=== PATIENT | female | born 1955 | race Caucasian/White ===

== ENCOUNTER 2020-09-03 12:30 | Outpatient (CLI) | payer OTHER, SELFPAY ==
--- NOTE | ~2020-09-03 | MR_ITS ---
EXAMINATION: MR shoulder RT wo con DATE: 09/03/2020 13:24 INDICATION: Right shoulder pain and weakness TECHNIQUE: Magnetic resonance imaging (MRI) of the right shoulder was performed without intravenous c ontrast. Sequences included axial PD-weighted FS FSE, coronal oblique PD-weighted FS FSE, coronal obl ique T2-weighted FS FSE, sagittal PD-weighted FS FSE, and sagittal T1-weighted SE. COMPARISON: None. FINDINGS: Coracoacromial arch: The acromion undersurface is curved in morphology (type II). The coracoacromial ligament is normal. M oderate acromioclavicular osteoarthritis. Rotator cuff: Supraspinatus tendinopathy with small likely full-thickness tear which measures 3 mm AP and extends 1 .3 cm medially from the superior facet footplate. The subscapularis, infraspinatus and teres minor te ndons are normal. Normal rotator cuff muscle bulk and signal. Biceps tendon, glenoid labrum and glenohumeral cartilage: Long head of the biceps tendon is normal. Glenoid labrum is normal. Glenohumeral cartilage is normal. Fluid: Small glenohumeral joint effusion which extends into the long head biceps tendon sheath and deep subs capular bursa. There is also a small amount of fluid in the subacromial/subdeltoid bursa likely exten ding through the full-thickness rotator cuff tear. No loose osteochondral bodies. Bones: Normal marrow signal with no edema, fracture or pathologic marrow replacing process. IMPRESSION: 1. Small full-thickness tear of the supraspinatus tendon. 2. Moderate glenohumeral osteoarthritis. Reviewed, dictated and finalized at location A. 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
== END 2020-09-03 12:31 | disposition home or self-care (01) ==
PROVIDERS: PCP Orthopaedic Surgery; Visit Provider Orthopaedic Surgery
DX: M25.511 Pain in right shoulder (principal); R53.1 Weakness
CPT/HCPCS: 73221

== ENCOUNTER 2024-05-31 08:49 | Outpatient (CLI) | payer MEDICARE, SELFPAY ==
--- NOTE | ~2024-05-31 | US_ITS ---
Renal-Bladder ultrasound Clinical History: Abnormal finding of blood chemistry Technique: Real-time sonographic imaging of the kidneys and urinary bladder was performed. Findings: The right kidney measures 9.1 cm in length and the left kidney measures 8.6 cm. There is no hydronephrosis or renal calculus identified. Renal cortical echogenicity is within normal limits. No renal mass lesion is identified. The urinary bladder is collapsed, limiting evaluation. Impression: Unremarkable ultrasound of the kidneys. Limited evaluation of urinary bladder. Reviewed, dictated and finalized at location M. Impression: Unremarkable ultrasound of the kidneys. Limited evaluation of urinary bladder.
== END 2024-05-31 08:50 | disposition home or self-care (01) ==
LOC: GOSHIMG 08:51
PROVIDERS: PCP Internal Medicine Nephrology; Visit Provider Internal Medicine
DX: R79.89 Other specified abnormal findings of blood chemistry (principal)
CPT/HCPCS: 76775

== ENCOUNTER 2025-05-05 11:00 | Outpatient (NON) | payer MEDICARE, SELFPAY ==
--- OUTSIDE RECORDS SUMMARY | 2007-11-26 04:03 | XMS_ITS | Continuity of Care Document ---
Author Organization [facility] Address [address] [place] [address] utive [facility] 150 [place] [address] Phone Care Team Providers Care Teller Vault Name Role Phone Luis Miguel Jay Unavailable Unavailable Procedures Procedure Date Office/outpatient Visit, Est Office/outpatient Visit, Est Office/outpatient Visit, Est Eye Exam Established Pt Office/outpatient Visit, Est Office/outpatient Visit, Est Advance Directives Directive Yes / No Effective Date File Name No Information Encounters Encounter Description Practice Location Reason(s) For Visit Diagnoses Date Provider Providers Copied on Encounter Office/outpat ient Visit, [facility], [address] [place] [address] [facility], [place], [place], [address], [place] tel:[phone] [facility] [place] No Information 4-200 8 Pierre Bolaons. [facility] , [address], [place], [facility], [place]. tel:[phone] Referring Provider: Balaji Winn, [address] [place] [address], [facility]. tel:[phone] Office/outpat ient Visit, [facility], [address] [place] [address] [address], [place], [place], [address], [place] tel:[phone] [facility] [place] No Information Oct- 8-200 8 Byron Davalos. 2421 [facility] 102, [place], [address], [place]. tel:[phone] Referring Provider: Balaji Winn, [address] [place] [address], [facility]. tel:[phone] Office/outpat ient Visit, [facility], [address] [place] [address] [address], [place], [place], [address], tel:[phone] [facility] No Information Mar-2 6-200 8 Pressley OD Robbie. [address] [place], [place] [address]ate Center , [address], [place], [facility], [place]. tel:[phone] Referring Provider: Balaji Winn, [address] [place] [address], [facility]. tel:[phone] [facility], [address] [place] [address] [address], [place], [place], [address], [place] tel:[phone] [facility] No Information Mar-2 5-200 8 Krishnasamy Anoop. [address] [place], [place] [address]ate Center [address], [place], [facility], [place]. tel:[phone] Referring Provider: Robbie Pressley OD A, [address] [place], [place] [address]ate Center [address], [place], [facility]. tel:[phone] Office/outpat ient Visit, [facility], [address] [place] [address] [address], [place], [place], [address], [place] tel:[phone] SEC [facility] No Information Mar-1 9-200 8 Pressley OD Robbie. [facility] , [address], [place], [facility], [place]. tel:[phone] Office/outpat ient Visit, [facility], [address] [place] [address] [address], [place], [place], [address], [place] tel:[phone] [facility] No Information Mar-1 2-200 8 Pressley OD Robbie. [facility] , [address], [place], [address], [place]. tel:[phone] Referring Provider: Balaji Winn, [facility] [place], [address]. tel:[phone] Family History Family Member Type Diagnosis Age [...]
--- OUTSIDE RECORDS SUMMARY | 2025-05-05 12:06 | XMS_ITS | Clinical Summary ---
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 Name Role Phone Balaji Winn MD Primary Care Provider Kai Melo MD Unavailable [phone] Allergies Active Allergy Reactions Criticality Noted Date Comments Cefprozil Rash Medium 10/26/2024 Doxycycline Other (See comments) 10/26/2024 Vibramycin Nitrofurantoin Monohyd/M-Cryst Nausea only Low 10/26/2024 Sulfa (Sulfonamide Antibiotics) Medications ALPRAZolam (XANAX) 0.25 mg tablet Take by mouth 3 (three) times a day as needed Active amLODIPine (NORVASC) 2.5 mg tablet Take 1 tablet (2.5 mg total) by mouth daily Active buPROPion XL (WELLBUTRIN XL) 150 mg 24 hr tablet Take 1 tablet (150 mg total) by mouth daily Active calcium carbonate-vitam in D3 (CALTRATE 600 + D) 1500 mg (600 mg elemental) -400 units per tablet Take 1 tablet by mouth 2 (two) times a day Active cholecalciferol (VITAMIN D-3) 2000 unit capsule Take 1 capsule (2,000 Units total) by mouth daily 9 Active citalopram (CeleXA) 20 mg tablet Take 1 tablet (20 mg total) by mouth daily Active clobetasoL (TEMOVATE) 0.05 % cream Apply 1 Application topically 2 (two) times a day as needed Active clotrimazole-be tamethasone (LOTRISONE) cream Apply 1 Application topically 2 (two) times a day as needed Active cyanocobalamin/ folic acid (vitamin Q85-xpnze acid) 1,000-[address] every day by sublingual route. 9 Active fluconazole (DIFLUCAN) 150 mg tablet Take 1 tablet (150 mg total) by mouth every 30 (thirty) days 1st of the month Active lisinopril-hydr oCHLOROthiazide (ZESTORETIC) 20-12.5 mg per tablet Take 1 tablet by mouth daily Active lansoprazole (PREVACID) 15 mg capsule Take 1 capsule (15 mg total) by mouth nightly 9 Active Daily-Jordi, with folic acid, 400 mcg tablet Take 1 tablet by mouth daily 5 Active pregabalin (LYRICA) 50 mg capsule Take 1 capsule (50 mg total) by mouth 2 (two) times a day 5 Active nystatin powder Apply 1 Application topically 2 (two) times a day as needed Active rOPINIRole (REQUIP) 1 mg tablet Take 1 tablet (1 mg total) by mouth nightly 5 Active naloxone (NARCAN) 4 mg/actuation spray,non-aeros olIndications:O ther closed displaced fracture of proximal end of left humerus with routine healing, subsequent encounter Administer 1 spray into affected nostril(s) as needed for opioid reversal or respiratory depression Call 911. Administer a single spray in one nostril. Repeat every 3 minutes as needed if no or minimal response. 1 each [address] (VOLTAREN) 75 mg EC tablet Take 1 tablet (75 mg total) by mouth nightly 5 Active RIVAROXABAN 15 MG (42)-20 MG (9) TABLETS IN A STARTER PACK Take 15 mg (1 tablet) TWICE a day for 21 days, then take 20 mg (1 tablet) once a day thereafter. 51 tablet 5 Active acetaminophen-c odeine (TYLENOL with CODEINE #4) 300-60 mg per tablet TK 1 T PO Q 6 H Act magnus amitriptyline (ELAVIL) 25 mg tablet Active amoxicillin 500 mg tablet/capsule Take 1 capsule 3 times a day by oral route for 10 days. Active azithromycin (ZITHROMAX) 250 mg tablet TAKE 2 TABLETS (500 MG) BY ORAL ROUTE ONCE DAILY FOR 1 DAY THEN 1 TABLET (250 MG) BY ORAL ROUTE ONCE DAILY FOR 4 DAYS 5 Active ciprofloxacin (CIPRO) 500 mg tablet Take 1 tablet every 12 hours by oral route. Active clindamycin (CLEOCIN) 300 mg capsule Take 1 capsule (300 mg total) by mouth every 6 (six) hours 5 Active desloratadine (Clarinex) 5 mg tablet Take 1 tablet every day by oral route. 5 Active doxycycline 100 mg tablet Active furosemide (LASIX) 20 mg tablet Take 1 tablet (20 mg total) by mouth daily Active HYDROcodone-emily taminophen (NORCO) 5-325 mg per tablet Take by mouth every 6 (six) hours as needed Active neomycin-polymy cathy B-dexAMETHasone (MAXITROL) 3.5 mg/g-10,000 unit/g-0.1 % ointment Active oxyCODONE-aceta minophen (PERCOCET) 5-325 mg per tablet Take 1 tablet by mouth every 4 (four) hours as needed for pain Active progesterone (PROMETRIUM) 200 mg capsule Activ e triamcinolone (KENALOG) 0.1 % paste Active tobramycin-dexA METHasone (TOBRADEX) ophthalmic solution INSTILL 1 DROP IN THE LEFT EYE 4 TIMES DAILY FOR 7 DAYS Active triazolam (HALCION) 0.25 mg tablet Active valACYclovir (VALTREX) 1 gram tablet Active Active Problems Problem Noted Date Diagnosed Date Other pulmonary embolism wit hout acute cor pulmonale, unspecified chronicity 02/01/2025 Chest pain 11/28/2024 Depressive disorder 11/28/2024 Enthesopathy of hip region 11/28/2024 Essential hypertension 11/28/2024 Low back pain 11/28/2024 Migraine 11/28/2024 Obstructive sleep apnea syndrome 11/28/2024 Osteoarthritis of knee 11/28/2024 Restless legs 11/28/2024 Shoulder joint pain 11/28/2024 Skin lesion 11/28/2024 Synovitis and tenosynovitis 11/28/2024 Closed fracture of proximal end of left humerus with routine healing 11/28/2024 Onychomycosis of toenail 09/25/2024 Plantar fasciitis of right foot 09/25/2024 Cellulitis of upper arm 06/02/2024 High serum creatinine 05/26/2024 Chronic renal failure 05/18/2024 COVID-19 04/12/2024 Pain in right foot 04/05/2024 Edema 03/07/2024 Low back strain 12/01/2023 Acute bronchitis 07/22/2023 Gastroesophageal reflux disease without esophagi tis 06/23/2023 Cough 05/18/2023 Hyperglycemia 02/18/2023 Arthritis 12/15/2022 Dystrophia unguium 12/15/2022 Headache 12/15/2022 Sleep disorder 12/15/2022 Arthralgia of left knee 09/24/2022 Hidradenitis suppurativa 09/02/2022 Tinea corporis 09/02/2022 Acute urinary tract infection 08/11/2022 Morbid obesity 08/11/2022 Vitamin D2 deficiency 02/11/2022 Acute conjunctivitis 01/13/2022 Polyneuropathy 12/17/2017 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 Constipation 06/30/2016 Obesity with body mass index 30 or greater 06/26 Encounters Date Type Department Care Team Description 04/13/2025 9:05 PM CDT - 04/13/2025 11:59 PM CDT Hospital Encounter [facility] [address] [place] [phone] Obstructive sleep apnea Discharge Disposition: Discharge to home or self care 04/10/2025 1:12 PM CDT - 04/10/2025 11:59 PM CDT Hospital Encounter [facility] ` [address] [place] [phone] Abnormal mammogram of right breast Discharge Disposition: Discharge to home or self care 03/22/2025 11:00 AM CDT Office Visit [facility] at [address] [place] [phone] Pinky Trevino PA Other closed displaced fracture of proximal end of left humerus with routine healing, subsequent encounter (Primary Dx) 03/22/2025 10:34 AM CDT - 03/22/2025 11:59 PM CDT Hospital Encounter [facility] [address] [place] [phone] Discharge Disposition: Discharge to home or self care 03/21/2025 10:16 AM CDT - 03/21/2025 11:59 PM CDT Hospital Encounter [facility] [address] [place] [address] Personal history of pulmonary embolism Discharge Disposition: Discharge to home or self care 03/16/2025 12:06 PM CDT - 03/16/2025 11:59 PM CDT Hospital Encounter [facility] [address] [place] [phone] Screening mammogram, encounter for Discharge Disposition: Discharge to home or self care 03/16/2025 12:04 PM CDT - 03/16/2025 11:59 PM CDT Hospital Encounter [facility] [address] [place] [phone] Age-related osteoporosis without current pathological fracture Discharge Disposition: Discharge to home or self care 02/01/2025 11:33 AM CDT - 02/03/2025 4:55 PM CDT Hospital Encounter [facility] [id number] [place] [id number] Marzena Holly MD Ogunremi, MD Prateek Hayes, Vaibhav Reyes, DO Other pulmonary embolism without acute cor pulmonale, unspecified chronicity (HCC) (Primary Dx) Discharge Disposition: Discharge to home or self care from Last 3 Months Medical History Medical History Date Comments Hypertension Arthritis Depression Family History Medical History Relation Name Comments Pancreatic cancer Neg Hx Prostate cancer Neg Hx Social History Tobacco Use Types Packs/Day Years Used Date Smoking Tobacco: Never Alcohol Use Standard Drinks/Week Comments Not Currently 0 (1 standard drink = 0.6 oz pur e alcohol) C Utilities Answer Date Recorded In the past 12 months has [employer], gas, oil, or water [employer] threatened to shut off services in your home? No 02/02/2025 Social Connection and Isolation Panel Answer Date Recorded In a typical week, how many times do you talk on the phone with family, friends, or neighbors? More than three times a week 02/02/2025 How often do you get togethe r with friends or relatives? More than three times a week 02/02/2025 How often do you attend chur ch or quaker services? Patient declined 02/02/2025 Do you belong to any clubs o r organizations such as protestant groups, unions, fraternal or athletic groups, or school groups? Patient declined 02/02/2025 How often do you attend meet ings of the clubs or organizations you belong to? Patient declined 02/02/2025 Are you , , di vorced, , never , or living with a partner? 02/02/2025 AUDIT-C Answer Date Recorded Q1: How often do you have a drink containing alc ohol? Never 01/18/2025 Average Number of Drinks Not on file 025 Frequency of Binge Drinking Not on file 12/23 Overall Financial Resource Strain (CARDIA) Answe r Date Recorded How hard is it for you to pa y for the very basics like food, housing, medical care, and heating? Not very hard 02/02/2025 Hunger Vital Sign Answer Date Recorded Within the past 12 months, y ou worried that your food would run out before you got the money to buy more. Never true 02/03/20 25 Within the past 12 months, t he food you bought just didn't last and you didn't have money to get more. Never true 02/02/2025 PRAPARE - Transportation Answer Date Re corded In the past 12 months, has l ack of transportation kept you from medical appointments or from getting medications? No 01/22 In the past 12 months, has l ack of transportation kept you from meetings, work, or from getting things needed for daily living? No 02/02/2025 Housing Stability Vital Sign Answer Constantine e Recorded In the last 12 months, was t here a time when you were not able to pay the mortgage or rent on time? No 02/02/2025 In the past 12 months, how m any times have you moved where you were living? 0 02/02/2025 At any time in the past 12 [facility], were you homeless or living in a senior care (including now)? No 02/02/2025 Personal Safety Answer Date Recorded Have you ever been in or are you currently in a harmful physical or emotional relationship or is someone making you feel afraid or unsafe? 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 Gender Identity Not on file Sexual Orientation Not on file Obstetrics History Para Term AB IAB SAB Ectopic Multiple Livin g Live Births 3 2 Date Outcome GA Total Labor Labor/2nd/3rd Weight Sex Type Anes PTL Bernice A1 A5 Name Clin Last Filed Vital Signs Vital Sign Reading Time Taken Comments Blood Pressure 117/84 02/03/2025 3:32 PM CDT Pulse 83 02/03/2025 3:32 PM CDT Temperature 36.3 C (97.3 F) 02/03/2025 3:32 PM CDT Respiratory Rate 18 02/03/2025 7:33 AM CDT Oxygen Saturation 91% 02/03/2025 7:33 AM CDT Inhaled Oxygen Concentration - - Weight 100.7 kg (222 lb) 03/22/2025 10:21 AM CDT Height 149.9 cm (4' 11) 03/22/2025 10:21 AM CDT Body Mass Index 44.84 03/22/2025 10:21 AM CDT Plan of Treatment Health Maintenance Due Date Last Done Comments Colon Cancer Screening-Colonoscopy 1955 Depression Screening 1955 DTaP/Tdap/Td Vaccine (1 - Tdap) 1967 Hepatitis B Screening 1974 Well Visit 65+ 2021 Covid-19 Vaccine (5 - 2024-2 6 season) 2025 07/09/2022, 07/24/2021, 11/17/2020, Additional history exists Influenza Vaccine (#1) 2025 , 06/04/2020, 07/07/2019, Additional history exists Fall Risk Assessment 02/03/2026 02/03/2025 Breast Cancer Screening-Mammogram 03/16/2026 025 Osteoporosis Screening-Bone Density Scan 03/16/2027 03/16/2025 Zoster Vaccine Completed 10/27/2022, 07/10/2022 Pneumococcal vaccine 65+ Completed 08/14/2023, 06/25 Hepatitis C Screening Completed 09/19/2024 Procedures Procedure Name Priority Date/Time Associated Diagnosis Comments PSG (SIMPLE) Routine 04/13/2025 12:00 AM CDT Obstructive sleep apnea US BREAST RIGHT LIMITED Schedule Routine, Read Routine (OP Routine) 04/10/2025 2:47 PM CDT Abnormal mammogram of right breast XR SHOULDER LEFT 2 OR MORE VIEWS Schedule Routine, Read Routine (OP Routine) 03/22/2025 1:07 PM CDT Other closed displaced fracture of proximal end of left humerus with routine healing, subsequent encounter US VEIN DUPLEX LOWER EXTREMITY BILATERAL COMPLETE Schedule Routine, Read Routine (OP Routine) 03/21/2025 11:09 AM CDT Personal history of pulmonary embolism SCREENING MAMMOGRAM BILATERAL W VIET Schedule Routine, Read Routine (OP Routine) 03/16/2025 12:40 PM CDT Screening mammogram, encounter for DEXA AXIAL SKELETON BONE DENSITY 1 OR MORE SITES Schedule Routine, Read Routine (OP Routine) 03/16/2025 12:34 PM CDT Age-related osteoporosis without current pathological fracture HOME O2 EVAL (DESATURATION SCREEN) Routine 02/03/2025 9:50 AM CDT US VEIN DUPLEX LOWER EXTREMITY BILATERAL COMPLETE IP Routine 02/03/2025 8:04 AM CDT EGFR Routine 02/03/2025 3:58 AM CDT CBC WITHOUT DIFFERENTIAL Routine 02/03/2025 3:58 AM CDT BASIC METABOLIC PANEL Routine 02/03/2025 3:58 AM CDT EGFR Routine 02/02/2025 6:30 AM CDT BASIC METABOLIC PANEL Routine 02/02/2025 6:30 AM CDT HEPATITIS C ANTIBODY Routine 09/19/2024 11:29 AM ORAL AND MAXILLOFACIAL PATHOLOGIST from Last 3 Months or Most Recently Relevant to Health Maintenance Results * PSG (04/13/2025 12:00 AM CDT) Narrative Procedure Note Basil Souza MD - 04/13/2025 12:00 AM CDT PATIENT: Debbie Brumfield STUDY DATE: 04/13/2025 REFERRING PHYSICIAN: Lorie INDICATIONS FOR POLYSOMNOGRAPHY: The patient is a 70 year year old Femalewho is 4' 11 and weighs 220.0 lbs. Her BMI equals 44.9. A full nightpolysomnogram was performed to evaluate for sleep apnea. POLYSOMNOGRAM DATA: A full night polysomnogram recorded the standardphysiologic parameters including EEG, EOG, EMG, EKG, nasal and oralairflow. Respiratory parameters of chest and abdominal movements wererecorded with Peizo-Crystal motion transducers. Oxygen saturation wasrecorded by pulse oximetry. Patient was monitored through video for theduration of the night. All data was visually scored and analyzed bystandard criteria and scored by an RPSGT. Every epoch was evaluated bythis interpreting physician. SLEEP ARCHITECTURE: The total recording time of the polysomnogram bmq528.6 minutes. The total sleep time was 282.5 minutes. The patient spent30.1% of total sleep time in Stage N1, 63.5% in Stage N2, 0.0% in StagesN3 and N, and 6.4% in REM. Sleep latency was 40.8 minutes. REM latency vti956.5 minutes. Sleep Efficiency was 66.1%. Sleep Maintenance Efficiencywas 73.2%. Total wake time was 145.5 minutes for a total wake percentageof 26.7%. RESPIRATORY EVENTS: The polysomnogram revealed a presence of 1obstructive, - central, and 4 mixed apneas resulting in an Apnea index of1.1 events per hour. There were 21 hypopneas resulting in a Hypopnea indexof 4.5 events per hour. The combined Apnea/Hypopnea index was 5.5 eventsper hour. Baseline oxygen saturation was 90.3%. The lowest oxygen saturation was79.0%. Time spent with SpO2 <88% was 59 min. LIMB ACTIVITY: There were 95 limb movements recorded. Of this total, 26were classified as PLMs. Of the PLMs, 2 were associated with arousals. TheLimb Movement index was 20.2 per hour while the PLM index was 5.5 per hourwith an arousal index of 0.4. CARDIAC SUMMARY: The average pulse rate was 80.4 bpm. The minimum pulserate was 70.0 bpm while the maximum pulse rate was 225.0 bpm. Underlyingcardiac rhythm during the night was normal sinus rhythm. CONCLUSION Mild obstructive sleep apnea. Prolonged sleep latency. Prolonged REM onset. Poor sleep stage progression. Nocturnal hypoxemia. DIAGNOSIS - Mild obstructive sleep apnea. RECOMMENDATIONS: If the patient has a history of excessive daytime sleepiness or carries ahistory of hypertension, other cardiovascular disorders, or impairedcognition, a full night CPAP titration study is recommended. Anotheroption includes a trial of auto-CPAP (APAP) if the patient is not onopioids and does not have congestive heart failure, obesityhypoventilation syndrome, or moderate to severe COPD. If going to use APAPtherapy then would do APAP 5-15 cmH2O and then obtain a nocturnaldesaturation study 4-6 weeks after starting PAP therapy to see ifnocturnal hypoxemia has resolved. If the patient is CPAP intolerant or interested in an alternative option,consider the use of a customized oral appliance. This may include referralto a dental specialist who is trained in dental sleep medicine. Positional therapy is also a possible treatment option. Avoid alcohol, sedatives and other ENVIRONMENTAL WEB CRAWLER depressants that may worsen sleepapnea and disrupt normal sleep architecture. Sleep hygiene should be reviewed to assess factors that may improve sleepquality. Safe driving precautions must be discussed with the patient. Weight management and regular exercise should be initiated or continued. Clinical correlation is suggested. Job ID/Internal Job ID: [id number] us Kai Melo MD SLEEP [facility]ENTER ORDERABLES Final Result * US Breast Right Limited (04/10/2025 2:47 PM CDT) Anatomical Region Laterality Modality Breast Right Ultrasound 04/10/2025 2:52 PM CDT Impressions 04/10/2025 2:52 PM CDT Right breast cyst correlates with the mammographic finding. OVERALL FINAL ASSESSMENT: BI-RADS Category 2: Benign. RECOMMENDATION: Annual screening mammography is recommended. Electronically signed by: Yariel Devries M.D. Narrative 04/10/2025 2:52 PM CDT EXAMINATION: RIGHT BREAST ULTRASOUND HISTORY: Follow-up right breast mass. COMPARISON: Screening mammogram of 03/16/2025 TECHNIQUE: Directed ultrasound evaluation of the RIGHT breast was performed. ULTRASOUND FINDINGS: In the right breast, at the 5 o'clock position 5 cm from the nipple, there is a 6 mm cyst. This correlates with the mammographic finding. There is no suspicious sonographic abnormality. us Balaji Winn MD IMG MAMMO PROCEDURES F inal Result * XR Shoulder Left 4 Views (03/22/2025 1:07 PM CDT) Anatomical Region Laterality Modality Upper Extremities, Shoulder Left Comp uted Radiography Narrative 03/22/2025 5:41 PM CDT My interpretation of her x-rays today: Four views of her left shoulder including AP, Grashey, scapular Y, and axillary show that the fracture remains in acceptable position. There has been no change the alignment of the fracture fragments. She has further callus formation and early remodeling seen. us Pinky VAIL IMG XR PROCEDURES Final Resu lt * US Vein Duplex Lower Extremity Bilateral Complete (03/21/2025 11:09 AM CDT) Anatomical Region Laterality Modality Vascular Bilateral Ultrasound 03/21/2025 12:5 8 PM CDT Impressions 03/21/2025 12:58 PM CDT There is no evidence of acute DVT in the right and the left lower extremities. Electronically signed by: Mary Galaviz M.D. Narrative 03/21/2025 12:58 PM CDT EXAMINATION: US VEIN DUPLEX LOWER EXTREMITY BILATERAL COMPLETE HISTORY: The patient is a 69-year-old female who presents with the history of pulmonary embolism. Comparison is made with the previous study dated 02/03/2025. TECHNIQUE: Bilateral lower extremity venous duplex study was performed with alexander scale imaging, color Doppler imaging and spectral waveform analysis. FINDINGS: There is normal compressibility and phasicity in the right and the left common femoral, deep femoral, femoral, popliteal, posterior tibial and peroneal veins as well as both saphenofemoral junctions. Imaging of these veins reveals no thrombus or reflux. Procedure Note Mary Galaviz MD - 03/21/2025 EXAMINATION: US VEIN DUPLEX LOWER EXTREMITY BILATERAL COMPLETE HISTORY: The patient is a 69-year-old female who presents with the history of pulmonary embolism. Comparison is made with the previous study dated 02/03/2025. TECHNIQUE: Bilateral lower extremity venous duplex study was performed with alexander scale imaging, color Doppler imaging and spectral waveform analysis. FINDINGS: There is normal compressibility and phasicity in the right and the left common femoral, deep femoral, femoral, popliteal, posterior tibial and peroneal veins as well as both saphenofemoral junctions. Imaging of these veins reveals no thrombus or reflux. IMPRESSION: There is no evidence of acute DVT in the right and the left lower extremities. Electronically signed by: Mary Galaviz M.D. us Balaji Winn MD IMG US PROCEDURES Xuan l Result * (ABNORMAL) Screening Mammogram Bilateral W Viet (03/16/2025 12:40 PM CDT) Anatomical Region Laterality Modality Breast Bilateral Mammography Impressions 03/21/2025 8:50 AM CDT Right 1) Mass: Right breast 0.5 cm mass in the lower inner quadrant at 5 o'clock. Assessment: 0 - Incomplete. Ultrasound is recommended. Left No evidence of malignancy. OVERALL BI-RADS FINAL ASSESSMENT: 0 - Incomplete: Needs Additional Imaging Evaluation RECOMMENDATIONS: Recommend right breast ultrasound. Narrative 03/21/2025 8:50 AM CDT EXAMINATION: Screening Mammogram Bilateral W Viet: 03/16/2025 COMPARISON: Relevant prior studies available at the time of interpretation were reviewed, including the most recent mammogram on: 01/04/2024. TECHNIQUE: Mammography was performed with 2D and digital breast tomosynthesis (DBT) images. CAD was utilized. BREAST PARENCHYMAL COMPOSITION: There are scattered areas of fibroglandular density. FINDINGS: Right 1) Mass: There is a 0.5 cm equal density, oval mass with circumscribed margins seen in the lower inner quadrant of the right breast at 5 o'clock. This finding needs additional imaging evaluation. Left There is no suspicious mass, calcification, or architectural distortion. us Self Screening Mammogram IMG MAMMO PROCEDURES Fi nal Result * Dexa Axial Skeleton Bone Density 1 or 2 Site (03/16/2025 12:34 PM CDT) Anatomical Region Laterality Modality Body N/A Other 03/16/2025 2:54 PM CDT Impressions 03/16/2025 2:54 PM CDT Normal bone mineral density of lumbar spine at L1-L4 Osteopenia of the, total left hip and left femoral neck. Major osteoporotic 10 year fracture risk is 14% Electronically signed by: Sebastian Chua M.D. Narrative 03/16/2025 2:54 PM CDT Examination: DEXA AXIAL SKELETON BONE DENSITY 1 OR MORE SITES Date: 03/16/2025 1:00 PM History: Osteoporosis screening. Comparison: None. Findings: The bone densitometry of the L1-L4 region, the left femoral neck and the total left hip was calculated using dual-energy x-ray absorptiometry. Summary: Bone mineral density (BMD) of the lumbar spine (L1-4): T-score is -0.2; 97% of normal Bone mineral density (BMD) of the total left hip: T-score is 0.5; 93% of normal Bone mineral density (BMD) of the left femoral neck: T-score is -1.6; 79% of normal Procedure Note Sebastian Chua MD - 03/16/2025 Examination: DEXA AXIAL SKELETON BONE DENSITY 1 OR MORE SITES Date: 03/16/2025 1:00 PM History: Osteoporosis screening. Comparison: None. Findings: The bone densitometry of the L1-L4 region, the left femoral neck and the total left hip was calculated using dual-energy x-ray absorptiometry. Summary: Bone mineral density (BMD) of the lumbar spine (L1-4): T-score is -0.2; 97% of normal Bone mineral density (BMD) of the total left hip: T-score is 0.5; 93% of normal Bone mineral density (BMD) of the left femoral neck: T-score is -1.6; 79% of normal IMPRESSION: Normal bone mineral density of lumbar spine at L1-L4 Osteopenia of the, total left hip and left femoral neck. Major osteoporotic 10 year fracture risk is 14% Electronically signed by: Sebastian Chua M.D. Balaji Winn MD IMG DXA PROCEDURES Fin al Result * US Vein Duplex Lower Extremity Bilateral Complete (02/03/2025 8:04 AM CDT) Anatomical Region Laterality Modality Vascular Bilateral Ultrasound 02/03/2025 8:17 AM CDT Impressions 02/03/2025 8:17 AM CDT 1. Occlusion of the downstream portion of the left superficial femoral vein with nonvisualization of the common femoral and profunda suggesting deep vein thrombosis of uncertain chronicity. 2. No right lower extremity deep vein thrombosis seen. Electronically signed by: Ramírez Keating M.D. Narrative 02/03/2025 8:17 AM CDT EXAMINATION: BILATERAL LOWER EXTREMITY VENOUS DOPPLER HISTORY: Pulmonary embolus COMPARISON: None TECHNIQUE: Ultrasound examination was performed from the groin to the ankle using alexander scale, duplex color flow, and spectral analysis. The proximal saphenous, common femoral, superficial femoral, popliteal, posterior tibial and peroneal veins were evaluated. Both augmentation and compression maneuvers were performed. FINDINGS: The veins of the right lower extremity are normally compressible with normal augmentation. On the left the common femoral vein and the profunda are not visualized. The downstream portion of the superficial femoral vein is occluded. Upstream there is normal flow and augmentation. The popliteal vein to the calf veins are normal. The left greater saphenous vein is not visualized. Procedure Note Ramírez Keating MD - 02/03/2025 EXAMINATION: BILATERAL LOWER EXTREMITY VENOUS DOPPLER HISTORY: Pulmonary embolus COMPARISON: None TECHNIQUE: Ultrasound examination was performed from the groin to the ankle using alexander scale, duplex color flow, and spectral analysis. The proximal saphenous, common femoral, superficial femoral, popliteal, posterior tibial and peroneal veins were evaluated. Both augmentation and compression maneuvers were performed. FINDINGS: The veins of the right lower extremity are normally compressible with normal augmentation. On the left the common femoral vein and the profunda are not visualized. The downstream portion of the superficial femoral vein is occluded. Upstream there is normal flow and augmentation. The popliteal vein to the calf veins are normal. The left greater saphenous vein is not visualized. IMPRESSION: 1. Occlusion of the downstream portion of the left superficial femoral vein with nonvisualization of the common femoral and profunda suggesting deep vein thrombosis of uncertain chronicity. 2. No right lower extremity deep vein thrombosis seen. Electronically signed by: Ramírez Keating M.D. Renée George MD IMG US PROCEDURES Final Resul t * eGFR (02/03/2025 3:58 AM CDT) eGFR 66 >=60 mL/min/1. 73 m2 Comment: Interpretive Data Reference Interval Normal >/= 90 mL/min/1.73m2 Mildly decreased* 60 - 89 mL/min/1.73m2 Mildly to moderately decreased 45 - 59 mL/min/1.73m2 Moderately to severely decreased 30 - 44 mL/min/1.73m2 Severely decreased 15 - 29 mL/min/1.73m2 Kidney Failure < 15 mL/min/1.73m2 *Relative to young adult level Estimated glomerular filtration rate is determined by the 2020 CKD-EPI equation recommended by the National Kidney Foundation (A Unifying Approach to GFR Estimation: Recommendations of the NKF-ASK Task Force on Reassessing the Inclusion of Race in Diagnosing Kidney Disease, JASN 202). The CKD-EPI equation should not be used for patients with unstable renal function and has not been validated in children and those over 70. Current interpretive data was last reviewed 2021. Blood 02/03/2025 3:58 AM CDT 02/03/2025 4:30 AM CDT Renée George MD LAB BLOOD ORDERABLES Final Re sult [facility] [address] Department [place] [address] * (ABNORMAL) CBC without differential (02/03/2025 3:58 AM CDT) WBC 10.20(H) 3.80 - 9.90 K/cumm Hgb 11.6(L) 11.9 - 15.5 g/dL [facility] CH Hct 37.6 35.6 - 45.5 % [facility] CH Plt 197 150 - 400 K/cumm [facility] CH MPV 10.9 9.1 - 12.3 fL [facility] RBC 4.19 3.90 - 5.20 M/cumm [facility] CH MCV 89.7 81.3 - 96.4 fL [facility] CH MCH 27.7 27.1 - 33.3 pg [facility] MCHC 30.9(L) 32.3 - 35.7 g/dL [facility] CH RDW CV 15.9(H) 11.1 - 14.9 % [facility] CH RDW SD 52.1(H) 35.7 - 48.1 fL [facility] NRBC abs 0.00 0.00 - 0.01 K/cumm [facility] Blood 02/03/2025 3:58 AM CDT 02/03/2025 4:30 AM CDT Narrative [facility] - 02/03/2025 4:38 AM CDT While on enoxaparin Vaibhav Chandra DO LAB BLOOD ORDERABLES Xuan l Result [facility] [address] Department [place] [address] * Basic metabolic panel (02/03/2025 3:58 AM CDT) Sodium 141 135 - 145 mmol/L Potassium, pl 3.6 3.3 - 4.9 mmol/L [facility] Chloride 104 97 - 110 mmol/L [facility] CO2 26 22 - 32 mmol/L [facility] Anion gap 11 2 - 15 mmol/L [facility] BUN 20 6 - 25 mg/dL [facility] Creatinine 0.94 0.60 - 1.10 mg/dL [facility] Glucose 105 70 - 199 mg/dL [facility] Comment: Interpretive Data Fasting glucose >/= 126 mg/dl is diagnostic for diabetes. Fasting is defined as no caloric intake for at least 8 hours. Fasting glucose between 100 mg/dl to 125 mg/dl is diagnostic of prediabetes. In a patient with classic symptoms of hyperglycemia or hyperglycemic crisis, a random glucose >/= 200 mg/dl is diagnostic for diabetes. In the absence of unequivocal hyperglycemia, results should be confirmed by repeat testing. The classification and Diagnosis of Diabetes Diabetes Care 2021; 46: S19-S40. Current interpretive data was last revised 2022. Calcium 9.2 8.5 - 10.3 mg/dL [facility] Blood 02/03/2025 3:58 AM CDT 02/03/2025 4:30 AM CDT us Renée George MD LAB BLOOD ORDERABLES Final Re sult [facility] [address] Department [place] [address] * eGFR (02/02/2025 6:30 AM CDT) eGFR 68 >=60 mL/min/1. 73 m2 Comment: Interpretive Data Reference Interval Normal >/= 90 mL/min/1.73m2 Mildly decreased* 60 - 89 mL/min/1.73m2 Mildly to moderately decreased 45 - 59 mL/min/1.73m2 Moderately to severely decreased 30 - 44 mL/min/1.73m2 Severely decreased 15 - 29 mL/min/1.73m2 Kidney Failure < 15 mL/min/1.73m2 *Relative to young adult level Estimated glomerular filtration rate is determined by the 2020 CKD-EPI equation recommended by the National Kidney Foundation (A Unifying Approach to GFR Estimation: Recommendations of the NKF-ASK Task Force on Reassessing the Inclusion of Race in Diagnosing Kidney Disease, JASN 2020). The CKD-EPI equation should not be used for patients with unstable renal function and has not been validated in children and those over 70. Current interpretive data was last reviewed 2021. Blood 02/02/2025 6:30 AM CDT 02/02/2025 6:49 AM CDT Víctor Weiss MD LAB BLOOD ORDERABLES Final Result [facility] [address] Department [place] [address] * Basic metabolic panel (02/02/2025 6:30 AM CDT) Sodium 139 135 - 145 mmol/L Potassium, pl 3.9 3.3 - 4.9 mmol/L [facility] Chloride 102 97 - 110 mmol/L [facility] CO2 23 22 - 32 mmol/L [facility] Anion gap 14 2 - 15 mmol/L [facility] BUN 20 6 - 25 mg/dL [facility] Creatinine 0.92 0.60 - 1.10 mg/dL [facility] Glucose 109 70 - 199 mg/dL [facility] Comment: Interpretive Data Fasting glucose >/= 126 mg/dl is diagnostic for diabetes. Fasting is defined as no caloric intake for at least 8 hours. Fasting glucose between 100 mg/dl to 125 mg/dl is diagnostic of prediabetes. In a patient with classic symptoms of hyperglycemia or hyperglycemic crisis, a random glucose >/= 200 mg/dl is diagnostic for diabetes. In the absence of unequivocal hyperglycemia, results should be confirmed by repeat testing. The classification and Diagnosis of Diabetes Diabetes Care 202; 46: S19-S40. Current interpretive data was last revised 2022. Calcium 9.5 8.5 - 10.3 mg/dL [facility] Blood 02/02/2025 6:30 AM CDT 02/02/2025 6:44 AM CDT us Víctor Weiss MD LAB BLOOD ORDERABLES Final Result [facility] [address] Department [place] [address] * Hepatitis C antibody Blood (09/19/2024 11:29 AM ORAL AND MAXILLOFACIAL PATHOLOGIST) Hep C Ab Nonreactive Nonreactive Comment: Interpretive Data Nonreactive: Antibodies to HCV not detected. Does NOT exclude the possibility of recent exposure to HCV. Equivocal: Equivocal for HCV antibodies. Supplemental molecular testing will be automatically performed to determine infection status in accordance with current CDC screening recommendations. Reactive: Positive for HCV antibodies. This may represent current or past HCV infection. Supplemental molecular testing will be automatically performed to determine current infection status in accordance with current CDC screening recommendations. Interpretive data was last revised on 2019. Blood 09/19/2024 11:2 9 AM ORAL AND MAXILLOFACIAL PATHOLOGIST 09/19/2024 6:33 PM ORAL AND MAXILLOFACIAL PATHOLOGIST Walter Acosta DO LAB MICROBIOLOGY - GENERAL ORDERABLES Final Result [facility] [address] Department [place] [address] from Last 3 Months or Most Recently Relevant to Health Maintenance Insurance [employer] Advance Directives For more information, please contact: [phone] * Full Code (Latest Code Status on File) Date Activated Date Inactivated Comments 02/01/2025 6:25 PM 02/03/2025 9:00 PM Care Teams Liquor Bridge Operator Helper Relationship Specialty Start Date End Date Balaji Winn MD PCP - General Internal Medicine 10/24/24 [place] [id number] [address] Consulting Physician Pulmonary Disease 02/03/25
--- OUTSIDE RECORDS SUMMARY | 2025-05-05 12:07 | XMS_ITS | Clinical Summary ---
Author Organization [facility] Facility Address [address] [address] Care Team Providers Care Principal Technical Architect Name Role Phone Balaji Winn MD Primary Care Provider [phone] Encounters Date Type Department Care Team Description 02/07/2025 Office Communication [facility] [employer] [facility], [address] [phone] Walter Acosta DO from Last 3 Months Social History Tobacco Use Types Packs/Day Years Used Date Smoking Tobacco: Never Assessed Comments Unknown Sex and Gender Information Value Date Recorded Sex Assigned at Not on file Legal Sex Female 12:47 PM EDT Gender Identity Not on file Sexual Orientation Not on file Last Filed Vital Signs Vital Sign Reading Time Taken Comments Blood Pressure 122/70 01/31/2025 1:10 PM CDT Pulse 68 01/31/2025 1:10 PM CDT Temperature 36.7 C (98 F) 09/27/2024 4:25 PM REFRIGERATING ENGINEER Respiratory Rate 20 01/31/2025 1:10 PM CDT Oxygen Saturation 91% 01/31/2025 1:10 PM CDT Inhaled Oxygen Concentration - - Weight 98.9 kg (218 lb) 01/31/2025 1:10 PM CDT Height 149.9 cm (4' 11) 01/31/2025 1:10 PM CDT Body Mass Index 44.03 01/31/2025 1:10 PM CDT Plan of Treatment Upcoming Encounters Date Type Department Care Team (Late st Contact Info) Description 08/08/2025 1:15 PM REFRIGERATING ENGINEER Office Visit [facility] [facility], [facility] [address] [facility] [address] [place] [phone] Walter Acosta DO [address] [facility] [address] [place] [address] [phone] Health Maintenance Due Date Last Done Comments Breast Cancer Screening 1955 Colorectal Cancer Screening: Annual FOBT 2005 Colorectal Cancer Screening: Colonoscopy 2005 Colorectal Cancer Screening: Sigmoidoscopy 2005 Diabetes: Hemoglobin A1C 01/20/2025 Diabetes: Ophthalmology Exam 01/20/2025 Diabetes: Pedal Pulse Checked 01/20/2025 Diabetes: Sensory Foot Exam 01/20/2025 Diabetes: Visual Foot Exam 01/20/2025 Influenza Vaccine (#1) 2025 , 06/04/2020, 07/07/2019, Additional history exists Pneumococcal Vaccine: 50+ Years Completed 08/14/2023, 07/16/2022 Hepatitis B Vaccine Aged Out No longe r eligible based on patient's age to complete this topic Insurance Medicare Advance Directives Documents on File Type Date Recorded Patient Security Compliance Specialist Expl anation Advance Care Planning 09/27/2024 11:40 AM Care Teams Principal Technical Architect Relationship Specialty Start Date End Date Balaji Winn MD [address] [facility] [address] [place] [id number] PCP - General Internal Medicine 05/27/24
== END 2025-05-05 11:01 | disposition home or self-care (01) ==
PROVIDERS: PCP Internal Medicine Nephrology; Visit Provider Otolaryngology
DX: J32.9 Chronic sinusitis, unspecified (principal)
CPT/HCPCS: 87070; 87075; 87077; 87186; 87205

== ENCOUNTER 2025-05-31 15:24 | Outpatient (NON) | payer MEDICARE, SELFPAY | END 2025-05-31 15:25 | disposition home or self-care (01) | LOC: ANHGOSHLAB 15:25 | PROVIDERS: PCP Internal Medicine Nephrology; Visit Provider Otolaryngology | DX: J01.90 Acute sinusitis, unspecified (principal); T78.40XA Allergy, unspecified, initial encounter | CPT/HCPCS: 87070; 87075; 87205 ==

== ENCOUNTER 2025-06-01 14:49 | Outpatient (CLI) | payer MEDICARE, SELFPAY ==
--- NOTE | ~2025-06-01 | CT_ITS ---
EXAMINATION: CT sinus wo con DATE: 06/01/2025 15:13 INDICATION: Chronic sinusitis TECHNIQUE: Computed tomography (CT) of the paranasal sinuses was performed without intravenous contrast. Coronal reconstructions were obtained. Iterative reconstruction technique was employed. The dose-length product was 301.30 mGy-cm. COMPARISON: None FINDINGS: Nearly complete filling of the left maxillary sinus and many of the left ethmoid air cells. There is occlusion of the left ostiomeatal unit and the left frontoethmoidal recess. Remainder of the paranasal sinuses are clear. Sclerotic wall thickening of the right sphenoid sinus suggesting sequela of prior chronic sinusitis. There is slight leftward bowing of the nasal septum which parallels the contours of the turbinates with left-sided nipple spike. There is also asymmetric mucosal thickening in the left nasal sinus. Bilateral orbits are normal. Mastoid air cells and middle ear cavities are clear. IMPRESSION: 1. Prominent left-sided sinus disease with near complete opacification of the left maxillary sinus and multiple left ethmoid air cells an including occlusion of the left frontoethmoidal recess and ostiomeatal unit. Reviewed, dictated and finalized at location A. IMPRESSION: 1. Prominent left-sided sinus disease with near complete opacification of the l eft maxillary sinus and multiple left ethmoid air cells an including occlusion of the left frontoethmoidal recess and ostiomeatal unit.
== END 2025-06-01 14:50 | disposition home or self-care (01) ==
PROVIDERS: PCP Internal Medicine; Visit Provider Otolaryngology
DX: J32.9 Chronic sinusitis, unspecified (principal); J01.90 Acute sinusitis, unspecified; J34.2 Deviated nasal septum; J34.3 Hypertrophy of nasal turbinates
CPT/HCPCS: 70486

== ENCOUNTER 2025-07-12 12:46 | Outpatient (CLI) | payer MEDICARE, SELFPAY ==
--- OUTSIDE RECORDS SUMMARY | 2007-11-26 03:03 | XMS_ITS | Continuity of Care Document ---
Author Organization [facility] Address [address] [place] [address] utive [facility] [address] [place] [address] Phone Care Team Providers Care Electric Tape Slitter Name Role Phone Luis Miguel Jay Unavailable Unavailable Procedures Procedure Date Office/outpatient Visit, Est Office/outpatient Visit, Est Office/outpatient Visit, Est Eye Exam Established Pt Office/outpatient Visit, Est Office/outpatient Visit, Est Advance Directives Directive Yes / No Effective Date File Name No Information Encounters Encounter Description Practice Location Reason(s) For Visit Diagnoses Date Provider Providers Copied on Encounter Office/[place]pat ient Visit, [facility] [place] [address] [place] [address] [facility], [place], [place], [id number], [place] tel:[phone] [facility] [place] No Information 4-200 8 Pierre Bolanos. [facility] , [address], [place], [place], [facility], [place]. tel:[phone] Referring Provider: Balaji Winn, [address] [place] [address], [facility]. tel:[phone] Office/outpat ient Visit, [facility] [address] [place] [address] [address], [place], [place], [address], [place] tel:[phone] [facility] [place] No Information Oct- 8-200 8 Byron Davalos. [address] [facility] 102, [place], [address], [place]. tel:[phone] Referring Provider: Balaji Winn, [address] [place] [address], [facility]. tel:[phone] Office/outpat ient Visit, [facility] Eye [facility], [address] [place] [address] [address], [place], [place], [address], tel:[phone] [facility] No Information Mar-2 6-200 8 Pressley OD Robbie. [address] [place], [place] [address]ate Center , [address], [place], [place], [facility], [place]. tel:[phone] Referring Provider: Balaji Winn, [address] [place] [address], [facility]. tel:[phone] [facility], [address] [place] [address] [address], [place], [place], [address], [place] tel:[phone] [facility] No Information Mar-2 5-200 8 Krishnasamy Anoop. [address] [place], [place] [address]ate [address], [place], [facility], [place]. tel:[phone] Referring Provider: Robbie Pressley OD A, [address] [place], [place] [address]ate Center [address], [place], [facility]. tel:[phone] Office/outpat ient Visit, [facility] Eye [facility], [address] [place] [address] [address], [place], [place], [address], [place] tel:[phone] [facility] No Information Mar-1 9-200 8 Pressley OD Robbie. [facility] , [address], [place], [facility], [place]. tel:[phone] Office/outpat ient Visit, [facility] Eye [facility], [address] [place] [address] [address], [place], [place], [address], [place] tel:[phone] [facility] No Information Mar-1 2-200 8 Pressley OD Robbie. [facility] , [address], [place], [address], [place]. tel:[phone] Referring Provider: Balaji Winn, [facility] [place], [address]. tel:[phone] Family History Family Member Type Diagnosis Age [...]
--- OUTSIDE RECORDS SUMMARY | 2025-07-12 10:01 | XMS_ITS | Continuity of Care Document ---
Author Organization [facility] Address [address] [place] [phone] Phone Care Team Providers Care Tooling Specialist Name Role Phone Hiram WALLS, FACC, José [...] Diagnoses Date Provider Providers Copied on Encounter [facility], [address] [place], [place], [id number], [place] tel:[phone] [facility] No Information Hiram Huddlestonialisa. [address] , [place], [place], [id number] , [place]. tel: [phone] OFFICE/OUTPAT IENT VISIT, [facility], [address] [place] [address], [id number], [phone] [facility] Establish care (chief complaint) Pt is being treated for DVT (chief complaint) occurring edema tyesha legs (chief complaint) DyspneaHTNEdemaHx of DVTPEObesityFamily hx of heart diseaseChest pain Hiram Valdez. [address], [place], [place], [id number] , [place]. tel: [phone] Referring Provider: Balaji Winn, [address] [place] [address] [address], [place], [address]. tel:[phone] [facility], [address] [place] [address], [id number], [phone] [facility] No Information Hiram Huddlestonialisa. [address] , [place], [place], [id number] , [place]. tel: [phone] Family History Family Member Type Diagnosis Age At Onset Problem (finding) Family history of Hyper tension Problem (finding) Family history of COPD Problem (finding) Family history of Diabe judy mellitus Problem (finding) Family history of Strok e Problem (finding) Family history of Cardi ovascular disease Payers Payer name Insurance type Covered democrat ID Authoriza tion(s) [facility] MEDICARE COMPLETE POS HMO 16 [id number] Social History Type Description Quantity Date Captured Comments Alcohol Use Details Unknown Caffeine Use Details Unknown Tobacco Use Status No Information Smoking Status No Information Sex Female Chief Complaint And Reason For Visit No Information Reason For Referral Reason For Referral No Information Plan Of Treatment Date Type Action Status Appointment Debbie Brumfield BOOKED Future Order: Radiology Order St ress Cardiac PET-CT ([id number]), Ordered on: Ordered History Of Present Illness [...]
[2025-07-12 13:37] LABS: Anion Gap 8 mmol/L (4-12); Blood Urea Nitrogen 17 mg/dL (7-17); Calcium 9.2 mg/dL (8.4-10.2); Carbon Dioxide 29 mmol/L (22-30); Chloride 101 mmol/L (98-107); Estimated Glomerular Filt Rate > 60; Glucose 107 mg/dL (65-110); Potassium 3.7 mmol/L (3.4-5.0); Sodium 138 mmol/L (137-145)
--- OUTSIDE RECORDS SUMMARY | 2025-07-12 18:32 | XMS_ITS | Clinical Summary ---
Author Organization [facility] Office Building [address] [place] [id number] Care Team Providers Care Media Librarian Name Role Phone Balaji Winn MD Primary Care Provider Kai Melo MD Unavailable [phone] Allergies Active Allergy Reactions Criticality Noted Date [...] mg total) by mouth daily Active calcium carbonate-vitami n D3 (CALTRATE 600 + D) 1500 mg [...] (two) times a day as needed Active clotrimazole-bet amethasone (LOTRISONE) cream Apply 1 Application topically 2 (two) times a day as needed Active cyanocobalamin/f olic acid (vitamin S26-lmwhg acid) 1,000-[address] every day by sublingual route. 9 Active fluconazole (DIFLUCAN) 150 mg tablet Take 1 tablet (150 mg total) by mouth every 30 (thirty) days 1st of the month Active lisinopril-hydro CHLOROthiazide (ZESTORETIC) 20-12.5 mg per tablet Take 1 [...] nightly 5 Active naloxone (NARCAN) 4 mg/actuation spray,non-aeroso lIndications:Oth er closed displaced fracture of proximal end of [...] a day thereafter. 51 tablet 5 Active acetaminophen-co deine (TYLENOL with CODEINE #4) 300-60 mg per tablet TK 1 T PO Q 6 H Acti ve amitriptyline (ELAVIL) 25 mg tablet Active amoxicillin [...] (20 mg total) by mouth daily Active HYDROcodone-acet aminophen (NORCO) 5-325 mg per tablet Take by mouth every 6 (six) hours as needed Active neomycin-polymyx in B-dexAMETHasone (MAXITROL) 3.5 mg/g-10,000 unit/g-0.1 % ointment Active oxyCODONE-acetam inophen (PERCOCET) 5-325 mg per tablet Take 1 tablet by mouth every 4 (four) hours as needed for pain Active progesterone (PROMETRIUM) 200 mg capsule Active triamcinolone (KENALOG) 0.1 % paste Active tobramycin-dexAM ETHasone (TOBRADEX) ophthalmic solution INSTILL 1 DROP IN THE LEFT EYE 4 TIMES DAILY FOR 7 DAYS Active triazolam (HALCION) 0.25 mg tablet Active valACYclovir (VALTREX) 1 gram tablet Active baclofen (LIORESAL) 10 mg tablet Take 1 tablet (10 mg total) by mouth 4 (four) times a day Active carbidopa-levodo pa (SINEMET) 25-100 mg per tablet Take 1 tablet by mouth nightly Active clotrimazole 1 % cream APPLY TO THE AFFECTED AND SURROUNDING AREAS OF SKIN BY TOPICAL ROUTE 2 TIMES PER DAY IN THE MORNING AND EVENING Active dicyclomine (BENTYL) 10 mg capsule Take 1 capsule 3 times a day by oral route as needed. Active doxycycline hyclate 100 mg capsule Take 1 tablet/capsule (100 mg total) by mouth 2 (two) times a day 5 Active estradioL (Estring) 2 mg (7.5 mcg /24 hour) vaginal ring Insert 1 vaginal ring every 3 months by vaginal route. 6 Active estrogens, conjugated, (Premarin) vaginal cream Insert 1 g 3 times a week by vaginal route. 6 Active fexofenadine-pse udoephedrine (Tory-D 24 Hour) 180-240 mg per 24 hr tablet Take 1 tablet every day by oral route. Active levoFLOXacin (LEVAQUIN) 750 mg tablet 750 MG ORALLY DAILY HALF YOUR CITALOPRAM DOSE AND HOLD YOUR FLUCONAZOLE WHILE TAKING Active omeprazole (PriLOSEC) 20 mg capsule Take by mouth daily 5 Active nitrofurantoin monohydrate (MACROBID) 100 mg capsule Take 1 capsule twice a day by oral route. Active linaCLOtide (Linzess) 290 mcg capsule Take 1 capsule (290 mcg total) by mouth daily Active linaCLOtide (Linzess) 145 mcg capsule Take 1 capsule(s) every day by oral route. Active lactulose solution 10 gram/15mL TAKE 15 ML BY MOUTH EVERY DAY Active meloxicam (MOBIC) 15 mg tablet Take 1 tablet (15 mg total) by mouth daily 30 tablet 1 07/24/20 Active Active Problems Problem Noted Date Diagnosed [...] Encounters Date Type Department Care Team Description 05/25/2025 3:15 PM CDT Office Visit [facility] at [address] [phone] Curtis Thompson MD Other closed displaced fracture of proximal end of left humerus with routine healing, subsequent encounter (Primary Dx); Left shoulder pain, unspecified chronicity 05/25/2025 2:55 PM CDT - 05/25/2025 11:59 PM CDT Hospital Encounter [facility] [address] [place] [phone] Discharge Disposition: Discharge to home or self care 05/25/2025 Orders Only [facility] at [address] [phone] Curtis Thompson MD Other closed displaced fracture of proximal end of left humerus with routine healing, subsequent encounter (Primary Dx); Left shoulder pain, unspecified chronicity 04/13/2025 9:05 PM CDT - 04/13/2025 11:59 PM CDT Hospital Encounter [facility] [address] [place] [phone] Obstructive sleep apnea Discharge Disposition: Discharge to [...] drink = 0.6 oz pur e alcohol) [facility] Utilities Answer Date Recorded In the past 12 months has th e electric, gas, oil, or water company threatened to shut off services in your [...] often do you attend chur ch or adventist services? Patient declined 02/02/2025 Do you belong [...] any time in the past 12 m [facility], were you homeless or living in a alf (including now)? No 02/02/2025 Personal Safety Answer Date Recorded Have you ever been in or are you currently in a harmful physical or emotional relationship or is someone making you feel afraid or unsafe? 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 Gender Identity Not on file Sexual Orientation [...] CDT Inhaled Oxygen Concentration - - Weight 103.4 kg (228 lb) 05/25/2025 2:40 PM CDT Height 149.9 cm (4' 11) 05/25/2025 2:40 PM CDT Body Mass Index 46.05 05/25/2025 2:40 PM CDT Plan of Treatment Health Maintenance Due Date Last Done Comments Colon Cancer Screening-Colonoscopy 1955 Depression Screening 1955 DTaP/Tdap/Td Vaccine (1 - Tdap) 1967 Hepatitis B Screening 1974 Well Visit 65+ 2021 Covid-19 Vaccine (5 - 2024-2 6 season) 2025 07/09/2022, 07/24/2021, 11/17/2020, Additional history exists Influenza Vaccine (#1) 2025 4, 06/04/2020, 07/07/2019, Additional history exists Fall Risk Assessment 02/03/2026 02/03/2025 Breast Cancer Screening-Mammogram 03/16/2026 025 Osteoporosis Screening-Bone Density Scan 03/16/2027 03/16/2025 Zoster Vaccine Completed 10/27/2022, 07/10/2022 Pneumococcal vaccine 65+ Completed 08/14/2023, 06/25 Hepatitis C Screening Completed 09/19/2024 Procedures Procedure Name Priority Date/Time Associated Diagnosis Comments XR SHOULDER LEFT 2 OR MORE VIEWS Schedule Routine, Read Routine (OP Routine) 05/25/2025 3:33 PM CDT Left shoulder pain, unspecified chronicity PSG (SIMPLE) Routine 04/13/2025 12:00 AM CDT Obstructive sleep apnea SCREENING MAMMOGRAM BILATERAL W VIET Schedule Routine, Read Routine (OP Routine) 03/16/2025 12:40 PM CDT Screening mammogram, encounter for DEXA AXIAL SKELETON BONE DENSITY 1 OR MORE SITES Schedule Routine, Read Routine (OP Routine) 03/16/2025 12:34 PM CDT Age-related osteoporosis without current pathological fracture HEPATITIS C ANTIBODY Routine 09/19/2024 11:29 AM PRINTING PLATE SETTER from Last 3 Months or Most Recently Relevant to Health Maintenance Results * XR Shoulder Left 2 or More Views (05/25/2025 3:33 PM CDT) Anatomical Region Laterality Modality Upper Extremities, Shoulder Left Comp uted Radiography Narrative 05/26/2025 11:04 AM CDT X-rays four views left shoulder including AP Grashey scapular Y and axillary lateral demonstrate healed but malunited proximal humerus fracture us Curtis Thompson MD IMG XR PROCEDURES Final Resul t * PSG (04/13/2025 12:00 AM CDT) Narrative Procedure Note Harley, Basil Restoration, MD - 04/13/2025 12:00 AM CDT PATIENT: [...] The total recording time of the polysomnogram ysq514.6 minutes. The total sleep time was 282.5 minutes. The patient spent30.1% of total sleep time in Stage N1, 63.5% in Stage N2, 0.0% in StagesN3 and N, and 6.4% in REM. Sleep latency was 40.8 minutes. REM latency rbu853.5 minutes. Sleep Efficiency was 66.1%. Sleep Maintenance [...] treatment option. Avoid alcohol, sedatives and other METHODS TIME ANALYST depressants that may worsen sleepapnea and disrupt normal sleep architecture. Sleep hygiene should be reviewed to assess factors that may improve sleepquality. Safe driving precautions must be discussed with the patient. Weight management and regular exercise should be initiated or continued. Clinical correlation is suggested. Job ID/Internal Job ID: [id number] Kai Melo MD SLEEP CENTER ORDERABLES Final Result * (ABNORMAL) Screening Mammogram Bilateral W [...] 14% Electronically signed by: Sebastian Chua M.D. us Balaji Winn MD IMG DXA PROCEDURES Fin al Result * Hepatitis C antibody Blood (09/19/2024 11:29 AM PRINTING PLATE SETTER) Hep C Ab Nonreactive Nonreactive Comment: Interpretive [...] on 2019. Blood 09/19/2024 11:2 9 AM PRINTING PLATE SETTER 09/19/2024 6:33 PM PRINTING PLATE SETTER us Walter Acosta DO LAB MICROBIOLOGY - GENERAL ORDERABLES Final Result [place] [address] [address] [place] [place] [address] from Last 3 Months or Most Recently Relevant to Health Maintenance Insurance [employer] MEDICARE ADVANTAGE [facility] MEDICARE Address: [address] [address] [facility] MEDICARE ADVANTAGE [facility] MEDICARE Address: [address] [address] Advance Directives For more information, please contact: [phone] * Full Code (Latest Code Status on File) Date Activated Date Inactivated Comments 02/01/2025 6:25 PM 02/03/2025 9:00 PM Care Teams Media Librarian Relationship Specialty Start Date End Date Balaji Winn MD PCP - General Internal Medicine 10/24/24 [place] [id number] [address] Consulting Physician Pulmonary Disease 02/03/25
== END 2025-07-12 12:47 | disposition home or self-care (01) ==
LOC: ANHSURGERY 12:52
PROVIDERS: Anesthesiology; PCP Internal Medicine; Visit Provider Otolaryngology
DX: I10 Essential (primary) hypertension (principal)
CPT/HCPCS: 36415; 80048

== ENCOUNTER 2025-07-12 15:14 | Outpatient (NON) | payer MEDICARE, SELFPAY ==
--- OUTSIDE RECORDS SUMMARY | 2007-11-26 03:03 | XMS_ITS | Continuity of Care Document ---
Author Organization [facility] Address [address] [place] [address] utive [facility] 150 [place] [address] Phone Care Team Providers Care Boiler/Chiller Technician Name Role Phone Luis Miguel Jay Unavailable Unavailable Procedures Procedure Date Office/outpatient Visit, Est Office/outpatient Visit, Est Office/outpatient Visit, Est Eye Exam Established Pt Office/outpatient Visit, Est Office/outpatient Visit, Est Advance Directives Directive Yes / No Effective Date File Name No Information Encounters Encounter Description Practice Location Reason(s) For Visit Diagnoses Date Provider Providers Copied on Encounter [place] [facility] [address] [place] [address] [facility], [place], [place], [id number], [place] tel:[phone] [facility] [place] No Information 4-200 8 Pierre Bolanos. [facility] , [address], [place], [place], [facility], [place]. tel:[phone] Referring Provider: Balaji Winn, [address] [place] [address], [facility]. tel:[phone] Office/outpat ient Visit, [facility] [address] [place] [address] [address], [place], [place], [address], [place] tel:[phone] [facility] [place] No Information Oct- 8-200 8 Byron Davalos. [address] [facility] [address], [place], [address], [place]. tel:[phone] Referring Provider: Balaji Winn, [address] [place] [address], [facility]. tel:[phone] Office/outpat ient Visit, [facility] Eye [facility], [address] [place] [address] [address], [place], [place], [address], tel:[phone] [facility] No Information Mar-2 6-200 8 Pressley OD Robbie. [address] [place], [place] [address]ate Center , [address], [place], [facility], [place]. tel:[phone] Referring Provider: Balaji Winn, [address] [place] [address], [facility]. tel:[phone] [facility], [address] [place] [address] [address], [place], [place], [address], [place] tel:[phone] [facility] No Information Mar-2 5-200 8 Krishnasamy Anoop. [address] [place], [place] [address]ate [address], [place], [facility], [place]. tel:[phone] Referring Provider: Robbie Pressley OD A, [address] [place], [place] [address]ate Center [address], [place], [place], [facility]. tel:[phone] Office/outpat ient Visit, [facility], [address] [place] [address] [address], [place], [place], [address], [place] tel:[phone] [facility] No Information Mar-1 9-200 8 Pressley OD Robbie. [facility] , [address], [place], [place], [facility], [place]. tel:[phone] Office/outpat ient Visit, [facility], [address] [place] [address] [address], [place], [place], [address], [place] tel:[phone] [facility] No Information Mar-1 2-200 8 Pressley OD Robbie. [facility] , [address], [place], [address], [place]. tel:[phone] Referring Provider: Balaji Winn, [facility] [place], [address]. tel:[phone] Family History Family Member Type Diagnosis Age At Onset No Information Payers Payer name Insurance type Covered republican ID Authoriza tion(s) No Information Social History Type Description Quantity Date Captured Comments Sex Female Smoking Status No Information Chief Complaint And Reason For Visit No Information Reason For Referral Reason For Referral No Information History Of Present Illness Encounter Date Complaint History Of Prese nt Illness No Information Functional Status Date Functional Assessmen t No Information Instructions Date Instruction Additional Infor mation No Information Assessments Type Assessment Date No Information Patient Care Teams Name Effective Dates (start - stop) Status Members No Information
--- OUTSIDE RECORDS SUMMARY | 2007-11-26 03:03 | XMS_ITS | Continuity of Care Document ---
Author Organization [facility] Address [address] [place] [address] utive [facility] 150 [place] [address] Phone Care Team Providers Care Field Sales Consultant Name Role Phone Luis Miguel Jay Unavailable Unavailable Procedures Procedure Date Office/outpatient Visit, Est Office/outpatient Visit, Est Office/outpatient Visit, Est Eye Exam Established Pt Office/outpatient Visit, Est Office/outpatient Visit, Est Advance Directives Directive Yes / No Effective Date File Name No Information Encounters Encounter Description Practice Location Reason(s) For Visit Diagnoses Date Provider Providers Copied on Encounter Office/outpat ient Visit, [facility], [address] [place] [address] [facility], [place], [place], [address], [place] tel:[phone] [facility] [place] No Information 4-200 8 Pierre Bolanos. [facility] , [address], [place], [place], [facility], [place]. tel:[phone] Referring Provider: Balaji Winn, [address] [place] [address], [facility]. tel:[phone] Office/outpat ient Visit, [facility], [address] [place] [address] [address], [place], [place], [address], [place] tel:[phone] [facility] [place] No Information Oct- 8-200 8 Byron Davalos. [address] [facility] 102, [place], [address], [place]. tel:[phone] Referring Provider: Balaji Winn, [address] [place] [address], [facility]. tel:[phone] Office/outpat ient Visit, [facility], [address] [place] [address] [address], [place], [place], [address], tel:[phone] [facility] No Information Mar-2 6-200 8 Pressley OD Robbie. [address] [place], [place] [address]ate Center , [address], [place], [place], [facility], [place]. tel:[phone] Referring Provider: Balaji Winn, [address] [place] [address], [facility]. tel:[phone] [facility], [address] [place] [address] [address], [place], [place], [address], [place] tel:[phone] [facility] No Information Mar-2 5-200 8 Krishnasamy Anoop. [address] [place], [place] [address]ate [facility] [address], [place], [facility], [place]. tel:[phone] Referring Provider: Robbie Pressley OD A, [address] [place], [place] [address]ate Center [address], [place], [facility]. tel:[phone] Office/outpat ient Visit, [facility], [address] [place] [address] [address], [place], [place], [address], [place] tel:[phone] [facility] No Information Mar-1 9-200 8 Pressley OD Robbie. [facility] , [address], [place], [facility], [place]. tel:[phone] Office/outpat ient Visit, [facility], [address] [place] [address] [address], [place], [place], [address], [place] tel:[phone] [facility] No Information Mar-1 2-200 8 Pressley OD Robbie. [facility] , [address], [place], [address], [place]. tel:[phone] Referring Provider: Balaji Winn, [facility]4 [place], [address]. tel:[phone] Family History Family Member Type Diagnosis Age [...]
--- OUTSIDE RECORDS SUMMARY | 2007-11-26 03:03 | XMS_ITS | Continuity of Care Document ---
Author Organization [facility] Address [address] [place] [address] utive [facility] 150 [place] [address] Phone Care Team Providers Care Hogshead Wrecker Name Role Phone Luis Miguel Jay Unavailable Unavailable Procedures Procedure Date Office/outpatient Visit, Est Office/outpatient Visit, Est Office/outpatient Visit, Est Eye Exam Established Pt Office/outpatient Visit, Est Office/outpatient Visit, Est Advance Directives Directive Yes / No Effective Date File Name No Information Encounters Encounter Description Practice Location Reason(s) For Visit Diagnoses Date Provider Providers Copied on Encounter Office/outpat ient Visit, [facility], [address] [place] [address] [facility], [place], [place], [address], [place] tel:[phone] [facility] [place] No Information 4-200 8 Pierre Bolanos. [facility] , [address], [place], [facility][note 2], [place]. tel:[phone] Referring Provider: Balaji Winn, [address] [place] [address], [facility][note 2]. tel:[phone] Office/outpat ient Visit, [facility], [address] [place] [address] [address], [place], [place], [address], [place] tel:[phone] [facility] [place] No Information Oct- 8-200 8 Byron Davalos. [address] [facility] 102, [place], [address], [place]. tel:[phone] Referring Provider: Balaji Winn, [address] [place] [address], [facility][note 2]. tel:[phone] Office/outpat ient Visit, [facility] Eye [facility], [address] [place] [address] [address], [place], [place], [address], tel:[phone] [facility] No Information Mar-2 6-200 8 Pressley OD Robbie. [address] [place], [place] [address]ate Center , [address], [place], [place], [facility][note 2], [place]. tel:[phone] Referring Provider: Balaji Winn, [address] [place] [address], [facility][note 2]. tel:[phone] [facility], [address] [place] [address] [address], [place], [place], [address], [place] tel:[phone] [facility] No Information Mar-2 5-200 8 Krishnasamy Anoop. [address] [place], [place] [address]ate [address], [place], [facility][note 2], [place]. tel:[phone] Referring Provider: Robbie Pressley OD A, [address] [place], [place] [address]ate Center [address], [place], [facility][note 2]. tel:[phone] Office/outpat ient Visit, [facility], [address] [place] [address] [address], [place], [place], [address], [place] tel:[phone] [facility] No Information Mar-1 9-200 8 Pressley OD Robbie. [facility] , [address], [place], [facility][note 2], [place]. tel:[phone] Office/outpat ient Visit, [facility], [address] [place] [address] [address], [place], [place], [address], [place] tel:[phone] [facility] No Information Mar-1 2-200 8 Pressley OD Robbie. [facility] , [address], [place], [address], [place]. tel:[phone] Referring Provider: Balaji Winn, [facility] [place], [address]. tel:[phone] Family History Family Member Type Diagnosis Age [...]
--- OUTSIDE RECORDS SUMMARY | 2007-11-26 03:03 | XMS_ITS | Continuity of Care Document ---
Author Organization [facility] Address [address] [place] [address] utive [facility] 150 [place] [address] Phone Care Team Providers Care Weight Loss Sales Consultant Name Role Phone Luis Miguel Jay Unavailable Unavailable Procedures Procedure Date Office/outpatient Visit, Est Office/outpatient Visit, Est Office/outpatient Visit, Est Eye Exam Established Pt Office/outpatient Visit, Est Office/outpatient Visit, Est Advance Directives Directive Yes / No Effective Date File Name No Information Encounters Encounter Description Practice Location Reason(s) For Visit Diagnoses Date Provider Providers Copied on Encounter Office/outpat ient Visit, [facility], [address] [place] [address] Executive [facility], [place], [place], [address], [place] tel:[phone] [facility] [place] No Information 4-200 8 Pierre Bolanos. [facility] , [address], [place], [place], [facility], [place]. tel:[phone] Referring Provider: Balaji Winn, [address] [place] [address], [facility]. tel:[phone] Office/outpat ient Visit, [facility], [address] [place] [address] [address], [place], [place], [address], [place] tel:[phone] [facility] [place] No Information Oct- 8-200 8 Byron Davalos. [address]21 [facility] 102, [place], [address], [place]. tel:[phone] Referring Provider: Balaji Winn, [address] [place] [address], [facility]. tel:[phone] Office/outpat ient Visit, [facility], [address] [place] [address] [address], [place], [place], [address], tel:[phone] [facility] No Information Mar-2 6-200 8 Pressley OD Robbie. [address] [place], [place] [address]ate Center , [address], [place], [place], [facility], [place]. tel:[phone] Referring Provider: Balaji Winn, [address] [place] [address], [facility]. tel:[phone] [facility], [address] [place] [address] [address], [place], [place], [address], [place] tel:[phone] [facility] No Information Mar-2 5-200 8 Krishnasamy Anoop. [address] [place], [place] [address]ate [facility] [address], [place], [place], [facility], [place]. tel:[phone] Referring Provider: Robbie Pressley OD A, [address] [place], [place] [address]ate Center [address], [place], [place], [facility]. tel:[phone] Office/outpat ient Visit, [facility], [address] [place] [address] [address], [place], [place], [address], [place] tel:[phone] [facility] No Information Mar-1 9-200 8 Pressley OD Robbie. [facility] , [address], [place], [facility], [place]. tel:[phone] Office/outpat ient Visit, [facility], [address] [place] [address] [address], [place], [place], [address], [place] tel:[phone] [facility] No Information Mar-1 2-200 8 Pressley OD Robbie. [facility] , [address], [place], [address], [place]. tel:[phone] Referring Provider: Balaji Winn, [facility] [place], [address]. tel:[phone] Family History Family Member Type Diagnosis Age At Onset No Information Payers Payer name Insurance type Covered democrat ID Authoriza tion(s) No Information Social History [...]
--- OUTSIDE RECORDS SUMMARY | 2007-11-26 03:03 | XMS_ITS | Continuity of Care Document ---
Author Organization [facility] Address [address] [place] [address] utive [facility] 150 [place] [address] Phone Care Team Providers Care Motors And Generators Inspector Name Role Phone Luis Miguel Jay Unavailable Unavailable Procedures Procedure Date Office/outpatient Visit, Est Office/outpatient Visit, Est Office/outpatient Visit, Est Eye Exam Established Pt Office/outpatient Visit, Est Office/outpatient Visit, Est Advance Directives Directive Yes / No Effective Date File Name No Information Encounters Encounter Description Practice Location Reason(s) For Visit Diagnoses Date Provider Providers Copied on Encounter Office/outpat ient Visit, [facility], [address] [place] [address] Executive [facility], [place], [place], [id number], [place] tel:[phone] [facility] [place] No Information 4-200 8 Pierre Bolanos. [facility] , [address], [place], [place], [facility], [place]. tel:[phone] Referring Provider: Balaji Winn, [address] [place] [address], [facility]. tel:[phone] Office/outpat ient Visit, [facility], [address] [place] [address] [address], [place], [place], [address], [place] tel:[phone] [facility] [place] No Information Oct- 8-200 8 Byron Davalos. [address] [facility], [place], [address], [place]. tel:[phone] Referring Provider: Balaji Winn, [address] [place] [address], [facility]. tel:[phone] Office/outpat ient Visit, [facility], [address] [place] [address] [address], [place], [place], [address], tel:[phone] [facility] No Information Mar-2 6-200 8 Pressley OD Robbie. [address] [place], [place] [address]ate Center , [address], [place], [place], [facility], [place]. tel:[phone] Referring Provider: Balaji Winn, [address] [place] [address], [facility]. tel:[phone] [facility], [address] [place] [address] [address], [place], [place], [address], [place] tel:[phone] [facility] No Information Mar-2 5-200 8 Krishnasamy Anoop. [address] [place], [place] [address]ate [facility] [address], [place], [place], [facility], [place]. tel:[phone] Referring Provider: Robbie Pressley OD A, [address] [place], [place] [address]ate Center [address], [place], [facility]. tel:[phone] Office/outpat ient Visit, [facility], [address] [place] [address] [address], [place], [place], [address], [place] tel:[phone] SEC [facility] No Information Mar-1 9-200 8 Pressley OD Robbie. [facility] , [address], [place], [facility], [place]. tel:[phone] Office/outpat ient Visit, [facility], [address] [place] [address] [address], [place], [place], [address], [place] tel:[phone] SEC [facility] No Information Mar-1 2-200 8 Pressley OD Robbie. [facility] , [address], [place], [address], [place]. tel:[phone] Referring Provider: Balaji Winn, [facility] [place], [address]. tel:[phone] Family History Family Member Type Diagnosis Age At Onset No Information Payers Payer name Insurance type Covered libertarian ID Authoriza tion(s) No Information Social History [...]
--- OUTSIDE RECORDS SUMMARY | 2007-11-26 03:03 | XMS_ITS | Continuity of Care Document ---
Author Organization [facility] Address [address] [place] [address] utive [facility] 150 [place] [address] Phone Care Team Providers Care Sign Maintenance Name Role Phone Luis Miguel Jay Unavailable Unavailable Procedures Procedure Date Office/outpatient Visit, Est Office/outpatient Visit, Est Office/outpatient Visit, Est Eye Exam Established Pt Office/outpatient Visit, Est Office/outpatient Visit, Est Advance Directives Directive Yes / No Effective Date File Name No Information Encounters Encounter Description Practice Location Reason(s) For Visit Diagnoses Date Provider Providers Copied on Encounter Office/outpat ient Visit, [facility], [address] [place] [address] Executive [facility], [place], [place], [id number], [place] tel:[phone] SEC [facility] [place] No Information 4-200 8 Pierre Bolanos. [facility] , [address], [place], [place], [facility], [place]. tel:[phone] Referring Provider: Balaji Winn, [address] [place] [address], [facility]. tel:[phone] Office/outpat ient Visit, [facility], [address] [place] [address] [address], [place], [place], [address], [place] tel:[phone] [facility] [place] No Information Oct- 8-200 8 Byron Davalos. [facility] 102, [place], [address], [place]. tel:[phone] Referring Provider: Balaji Winn, [address] [place] [address], [facility]. tel:[phone] Office/outpat ient Visit, [facility], [address] [place] [address] [address], [place], [place], [id number], tel:[phone] SEC [facility] No Information Mar-2 6-200 8 Pressley OD Robbie. [address] [place], [place] [address]ate Center , [address], [place], [facility], [place]. tel:[phone] Referring Provider: Balaji Winn, [address] [place] [address], [facility]. tel:[phone] [facility], [address] [place] [address] [address], [place], [place], [address], [place] tel:[phone] [facility] No Information Mar-2 5-200 8 Krishnasamy Anoop. [address] [place], [place] [address]ate Center [address], [place], [facility], [place]. tel:[phone] Referring Provider: Robbie Pressley OD A, [address] [place], [place] [address]ate Center [address], [place], [facility]. tel:[phone] Office/outpat ient Visit, [facility], [address] [place] [address] [address], [place], [place], [address], [place] tel:[phone] SEC [facility] Center No Information Mar-1 9-200 8 Pressley OD Robbie. [facility] Corporate Center , [address], [place], [facility], [place]. tel:[phone] Office/outpat ient Visit, [facility], [address] [place] [address] [address], [place], [place], [address], [place] tel:[phone] [facility] No Information Mar-1 2-200 8 Pressley OD Robbie. [facility] Corporate Center , [address], [place], [address], [place]. tel:[phone] Referring Provider: Balaji Winn, [facility]4 [place], [address]. tel:[phone] Family History Family Member Type Diagnosis Age [...]
--- OUTSIDE RECORDS SUMMARY | 2007-11-26 03:03 | XMS_ITS | Continuity of Care Document ---
Author Organization [facility] Address [address] [place] [address] utive [facility] 150 [place] [address] Phone Care Team Providers Care It Application Development Manager Name Role Phone Luis Miguel Jay Unavailable Unavailable Procedures Procedure Date Office/outpatient Visit, Est Office/outpatient Visit, Est Office/outpatient Visit, Est Eye Exam Established Pt Office/outpatient Visit, Est Office/outpatient Visit, Est Advance Directives Directive Yes / No Effective Date File Name No Information Encounters Encounter Description Practice Location Reason(s) For Visit Diagnoses Date Provider Providers Copied on Encounter Office/outpat ient Visit, [facility], [address] [place] [address] Executive [facility], [place], [place], [address], [place] tel:[phone] [facility] [place] No Information 4-200 8 Pierre Bolanos. [facility] , [address], [place], [place], [facility], [place]. tel:[phone] Referring Provider: Balaji Winn, [address] [place] [address], [facility]. tel:[phone] Office/outpat ient Visit, [facility], [address] [place] [address] [address], [place], [place], [address], [place] tel:[phone] [facility] [place] No Information Oct- 8-200 8 Byron Davalos. [address] [facility] 102, [place], [address], [place]. tel:[phone] Referring Provider: Balaji Winn, [address] [place] [address], [facility]. tel:[phone] Office/outpat ient Visit, [facility], [address] [place] [address] [address], [place], [place], [address], tel:[phone] [facility] No Information Mar-2 6-200 8 Pressley OD Robbie. [address] [place], [place] [address]ate Center , [address], [place], [facility], [place]. tel:[phone] Referring Provider: Balaji Winn, [address] [place] [address], [facility]. tel:[phone] [facility], [address] [place] [address] [address], [place], [place], [address], [place] tel:[phone] [facility] No Information Mar-2 5-200 8 Krishnasamy Anoop. [address] [place], [place] [address]ate Center [address], [place], [facility], [place]. tel:[phone] Referring Provider: Robbie Pressley OD A, [address] [place], [place] [address]ate Center [address], [place], [facility]. tel:[phone] Office/outpat ient Visit, [facility], [address] [place] [address] [address], [place], [place], [address], [place] tel:[phone] [facility] No Information Mar-1 9-200 8 Pressley OD Robbie. [facility] , [address], [place], [facility], [place]. tel:[phone] Office/outpat ient Visit, [facility], [address] [place] [address] [address], [place], [place], [address], [place] tel:[phone] [facility] No Information Mar-1 2-200 8 Pressley OD Robbie. [facility] , [address], [place], [address], [place]. tel:[phone] Referring Provider: Balaji Winn, [facility] [place], [address]. tel:[phone] Family History Family Member Type Diagnosis Age At Onset No Information Payers Payer name Insurance type Covered alliance party ID Authoriza tion(s) No Information Social History [...]
--- OUTSIDE RECORDS SUMMARY | 2007-11-26 03:03 | XMS_ITS | Continuity of Care Document ---
Author Organization [facility] Address [address] [place] [address] utive [facility] 150 [place] [address] Phone Care Team Providers Care Tailer Out Name Role Phone Luis Miguel Jay Unavailable Unavailable Procedures Procedure Date Office/outpatient Visit, Est Office/outpatient Visit, Est Office/outpatient Visit, Est Eye Exam Established Pt Office/outpatient Visit, Est Office/outpatient Visit, Est Advance Directives Directive Yes / No Effective Date File Name No Information Encounters Encounter Description Practice Location Reason(s) For Visit Diagnoses Date Provider Providers Copied on Encounter Office/outpat ient Visit, [facility], [address] [place] [address] Executive [facility], [place], [place], [address], [place] tel:[phone] [facility] [place] No Information 4-200 8 Pierre Bolanos. [facility] , [address], [place], [facility], [place]. tel:[phone] Referring Provider: Balaji Winn, [address] [place] [address], [facility]. tel:[phone] Office/outpat ient Visit, [facility], [address] [place] [address] [address], [place], [place], [address], [place] tel:[phone] [facility] [place] No Information Oct- 8-200 8 Byron Davalos. [address] [facility] 102, [place], [address], [place]. tel:[phone] Referring Provider: Balaji Winn, [address] [place] [address], [facility]. tel:[phone] Office/outpat ient Visit, [facility], [address] [place] [address] [address], [place], [place], [address], tel:[phone] [facility] No Information Mar-2 6-200 8 Pressley OD Robbie. [address] [place], [place] [address]ate Center , [address], [place], [facility], [place]. tel:[phone] Referring Provider: Balaji Winn, [address] [place] [address], [facility]. tel:[phone] [facility], [address] [place] [address] [address], [place], [place], [address], [place] tel:[phone] [facility] No Information Mar-2 5-200 8 Krishnasamy Anoop. [address] [place], [place] [address]ate Center [address], [place], [facility], [place]. tel:[phone] Referring Provider: Robbie Pressley OD A, [address] [place], [place] [address]ate Center [address], [place], [facility]. tel:[phone] Office/outpat ient Visit, [facility], [address] [place] [address] [address], [place], [place], [address], [place] tel:[phone] [facility] No Information Mar-1 9-200 8 Pressley OD Robbie. [facility] , [address], [place], [facility], [place]. tel:[phone] Office/outpat ient Visit, [facility], [address] [place] [address] [address], [place], [place], [address], [place] tel:[phone] [facility] No Information Mar-1 2-200 8 Pressley OD Robbie. [facility] Center , [address], [place], [address], [place]. tel:[phone] Referring Provider: Balaji Winn, [facility] [place], [address]. tel:[phone] Family History Family Member Type Diagnosis Age [...]
--- OUTSIDE RECORDS SUMMARY | 2007-11-26 03:03 | XMS_ITS | Continuity of Care Document ---
Author Organization [facility] Address [address] [place] [address] utive [facility] 150 [place] [address] Phone Care Team Providers Care Optician Apprentice Dispensing Name Role Phone Luis Miguel Jay Unavailable Unavailable Procedures Procedure Date Office/outpatient Visit, Est Office/outpatient Visit, Est Office/outpatient Visit, Est Eye Exam Established Pt Office/outpatient Visit, Est Office/outpatient Visit, Est Advance Directives Directive Yes / No Effective Date File Name No Information Encounters Encounter Description Practice Location Reason(s) For Visit Diagnoses Date Provider Providers Copied on Encounter Office/outpat ient Visit, [facility], [address] [place] [address] Executive [facility], [place], [place], [address], [place] tel:[phone] [facility] [place] No Information 4-200 8 Pierre Bolanos. [facility] , [address], [place], [facility], [place]. tel:[phone] Referring Provider: Balaji Winn, [address] [place] [address], [facility]. tel:[phone] Office/outpat ient Visit, [facility], [address] [place] [address] [address], [place], [place], [address], [place] tel:[phone] SEC [facility] [place] No Information Oct- 8-200 8 Byron Davalos. [address] [facility] 102, [place], [address], [place]. tel:[phone] Referring Provider: Balaji Winn, [address] [place] [address], [facility]. tel:[phone] Office/outpat ient Visit, [facility], [address] [place] [address] [address], [place], [place], [address], tel:[phone] [facility] No Information Mar-2 6-200 8 Pressley OD Robbie. [address] [place], [place] [address]ate Center , [address], [place], [facility], [place]. tel:[phone] Referring Provider: Balaji Winn, [address] [place] [address], [facility]. tel:[phone] [facility], [address] [place] [address] [address], [place], [place], [address], [place] tel:[phone] [facility] No Information Mar-2 5-200 8 Krishnasamy Anoop. [address] [place], [place] [address]ate Center [address], [place], [facility], [place]. tel:[phone] Referring Provider: Robbie Pressley OD A, [address] [place], [place] [address]ate Center [address], [place], [facility]. tel:[phone] Office/outpat ient Visit, [facility], [address] [place] [address] [address], [place], [place], [address], [place] tel:[phone] [facility] Corporate Center No Information Mar-1 9-200 8 Pressley OD Robbie. [facility] Corporate Center , [address], [place], [facility], [place]. tel:[phone] Office/outpat ient Visit, [facility], [address] [place] [address] [address], [place], [place], [address], [place] tel:[phone] [facility] No Information Mar-1 2-200 8 Pressley OD Robbie. [facility] Corporate Center , [address], [place], [address], [place]. tel:[phone] Referring Provider: Balaji Winn, [facility] [place], [address]. tel:[phone] Family History Family Member Type Diagnosis Age At Onset No Information Payers Payer name Insurance type Covered green party ID Authoriza tion(s) No Information Social [...]
--- OUTSIDE RECORDS SUMMARY | 2007-11-26 03:03 | XMS_ITS | Continuity of Care Document ---
Author Organization [facility] Address [address] [place] [address] utive [facility] 150 [place] [address] Phone Care Team Providers Care Project Architect Name Role Phone Luis Miguel Jay Unavailable Unavailable Procedures Procedure Date Office/outpatient Visit, Est Office/outpatient Visit, Est Office/outpatient Visit, Est Eye Exam Established Pt Office/outpatient Visit, Est Office/outpatient Visit, Est Advance Directives Directive Yes / No Effective Date File Name No Information Encounters Encounter Description Practice Location Reason(s) For Visit Diagnoses Date Provider Providers Copied on Encounter Office/outpat ient Visit, [facility], [address] [place] [address] Executive [facility], [place], [place], [id number], [place] tel:[phone] [facility] [place] No Information 4-200 8 Pierre Bolanos. [facility] , [address], [place], [place], [facility], [place]. tel:[phone] Referring Provider: Balaji Winn, [address] [place] [address], [facility]. tel:[phone] Office/outpat ient Visit, [facility], [address] [place] [address] [address], [place], [place], [address], [place] tel:[phone] [facility] [place] No Information Oct- 8-200 8 Byron Davalos. [address] [facility] 102, [place], [address], [place]. tel:[phone] Referring Provider: Balaji Winn, [address] [place] [address], [facility]. tel:[phone] Office/outpat ient Visit, [facility], [address] [place] [address] [address], [place], [place], [address], tel:[phone] SEC [facility] No Information Mar-2 6-200 8 Pressley OD Robbie. [address] [place], [place] [address]ate Center , [address], [place], [place], [facility], [place]. tel:[phone] Referring Provider: Balaji Winn, [address] [place] [address], [facility]. tel:[phone] [facility], [address] [place] [address] [address], [place], [place], [address], [place] tel:[phone] [facility] No Information Mar-2 5-200 8 Krishnasamy Anoop. [address] [place], [place] [address]ate Center [address], [place], [facility], [place]. tel:[phone] Referring Provider: Robbie Pressley OD A, [address] [place], [place] [address]ate Center [address], [place], [facility]. tel:[phone] Office/outpat ient Visit, [facility], [address] [place] [address] [address], [place], [place], [address], [place] tel:[phone] SEC [facility] No Information Mar-1 9-200 8 Pressley OD Robbie. [facility] , [address], [place], [facility], [place]. tel:[phone] Office/outpat ient Visit, [facility], [address] [place] [address] [address], [place], [place], [address], [place] tel:[phone] SEC [facility] No Information Mar-1 2-200 8 Pressley OD Robbie. [facility] Center , [address], [place], [address], [place]. tel:[phone] Referring Provider: Balaji Winn, [facility]4 [place], [address]. tel:[phone] Family History Family Member Type Diagnosis Age [...]
--- OUTSIDE RECORDS SUMMARY | 2007-11-26 03:03 | XMS_ITS | Continuity of Care Document ---
Author Organization [facility] Address [address] [place] [address] utive [facility] 150 [place] [address] Phone Care Team Providers Care Pipe Insulator Name Role Phone Luis Miguel Jay Unavailable Unavailable Procedures Procedure Date Office/outpatient Visit, Est Office/outpatient Visit, Est Office/outpatient Visit, Est Eye Exam Established Pt Office/outpatient Visit, Est Office/outpatient Visit, Est Advance Directives Directive Yes / No Effective Date File Name No Information Encounters Encounter Description Practice Location Reason(s) For Visit Diagnoses Date Provider Providers Copied on Encounter Office/outpat ient Visit, [facility], [address] [place] [address] [facility], [place], [place], [id number], [place] tel:[phone] [facility] [place] No Information 4-200 8 Pierre Bolanos. [facility] , [address], [place], [place], [facility], [place]. tel:[phone] Referring Provider: Balaji Winn, [address] [place] [address], [facility]. tel:[phone] Office/outpat ient Visit, [facility], [address] [place] [address] [address], [place], [place], [address], [place] tel:[phone] [facility] [place] No Information Oct- 8-200 8 Byron Davalos. 2421 [facility] 102, [place], [address], [place]. tel:[phone] Referring Provider: Balaji Winn, [address] [place] [address], [facility]. tel:[phone] Office/outpat ient Visit, [facility], [address] [place] [address] [address], [place], [place], [id number], tel:[phone] [facility] No Information Mar-2 6-200 8 Pressley OD Robbie. [address] [place], [place] [address]ate Center , [address], [place], [place], [facility], [place]. tel:[phone] Referring Provider: Balaji Winn, [address] [place] [address], [facility]. tel:[phone] [facility], [address] [place] [address] [address], [place], [place], [id number], [place] tel:[phone] [facility] No Information Mar-2 5-200 8 Krishnasamy Anoop. [address] [place], [place] [address]ate Center [address], [place], [place], [facility], [place]. tel:[phone] Referring Provider: Robbie Pressley OD A, [address] [place], [place] [address]ate Center [address], [place], [place], [facility]. tel:[phone] Office/outpat ient Visit, [facility], [address] [place] [address] [address], [place], [place], [address], [place] tel:[phone] SEC [facility] No Information Mar-1 9-200 8 Pressley OD Robbie. [facility] , [address], [place], [place], [facility], [place]. tel:[phone] Office/outpat ient Visit, [facility], [address] [place] [address] [address], [place], [place], [address], [place] tel:[phone] SEC [facility] No Information Mar-1 2-200 8 Pressley OD Robbie. [facility] , [address], [place], [address], [place]. tel:[phone] Referring Provider: Balaji Winn, [facility]4 [place], [address]. tel:[phone] Family History Family Member Type Diagnosis Age [...]
--- OUTSIDE RECORDS SUMMARY | 2007-11-26 03:03 | XMS_ITS | Continuity of Care Document ---
Author Organization [facility] Address [address] [place] [address] utive [facility] 150 [place] [address] Phone Care Team Providers Care Tile Designer Name Role Phone Luis Miguel Jay Unavailable Unavailable Procedures Procedure Date Office/outpatient Visit, Est Office/outpatient Visit, Est Office/outpatient Visit, Est Eye Exam Established Pt Office/outpatient Visit, Est Office/outpatient Visit, Est Advance Directives Directive Yes / No Effective Date File Name No Information Encounters Encounter Description Practice Location Reason(s) For Visit Diagnoses Date Provider Providers Copied on Encounter Office/outpat ient Visit, [facility], [address] [place] [address] [facility], [place], [place], [id number], [place] tel:[phone] [facility] [place] No Information 4-200 8 Pierre Bolanos. [facility] , [address], [place], [place], [facility], [place]. tel:[phone] Referring Provider: Balaji Winn, [address] [place] [address], [facility]. tel:[phone] Office/outpat ient Visit, [facility], [address] [place] [address] [address], [place], [place], [address], [place] tel:[phone] [facility] [place] No Information Oct- 8-200 8 Byron Davalos. [address] [facility] 102, [place], [address], [place]. tel:[phone] Referring Provider: Balaji Winn, [address] [place] [address], [facility]. tel:[phone] Office/outpat ient Visit, [facility], [address] [place] [address] [address], [place], [place], [address], tel:[phone] [facility] No Information Mar-2 6-200 8 Pressley OD Robbie. [address] [place], [place] [address]ate Center , [address], [place], [place], [facility], [place]. tel:[phone] Referring Provider: Balaji Winn, [address] [place] [address], [facility]. tel:[phone] [facility], [address] [place] [address] [address], [place], [place], [address], [place] tel:[phone] [facility] No Information Mar-2 5-200 8 Krishnasamy Anoop. [address] [place], [place] [address]ate Center [address], [place], [place], [facility], [place]. tel:[phone] Referring Provider: Robbie Pressley OD A, [address] [place], [place] [address]ate Center [address], [place], [place], [facility]. tel:[phone] Office/outpat ient Visit, [facility], [address] [place] [address] [address], [place], [place], [address], [place] tel:[phone] SEC [facility] No Information Mar-1 9-200 8 Pressley OD Robbie. [facility] Corporate Center , [address], [place], [facility], [place]. tel:[phone] Office/outpat ient Visit, [facility], [address] [place] [address] [address], [place], [place], [address], [place] tel:[phone] SEC [facility] No Information Mar-1 2-200 8 Pressley OD Robbie. [facility] Corporate [facility] , [address], [place], [address], [place]. tel:[phone] Referring Provider: Balaji Winn, [facility] [place], [address]. tel:[phone] Family History Family Member Type Diagnosis Age [...]
--- OUTSIDE RECORDS SUMMARY | 2007-11-26 03:03 | XMS_ITS | Continuity of Care Document ---
Author Organization [facility] Address [address] [place] [address] utive [facility] 150 [place] [address] Phone Care Team Providers Care Resort Keeper Name Role Phone Luis Miguel Jay Unavailable Unavailable Procedures Procedure Date Office/outpatient Visit, Est Office/outpatient Visit, Est Office/outpatient Visit, Est Eye Exam Established Pt Office/outpatient Visit, Est Office/outpatient Visit, Est Advance Directives Directive Yes / No Effective Date File Name No Information Encounters Encounter Description Practice Location Reason(s) For Visit Diagnoses Date Provider Providers Copied on Encounter Office/outpat ient Visit, [facility], [address] [place] [address] Executive [facility], [place], [place], [address], [place] tel:[phone] [facility] [place] No Information 4-200 8 Pierre Bolanos. [facility] , [address], [place], [facility], [place]. tel:[phone] Referring Provider: Balaji Winn, [address] [place] [address], [facility]. tel:[phone] Office/outpat ient Visit, [facility], [address] [place] [address] [address], [place], [place], [address], [place] tel:[phone] [facility] [place] No Information Oct- 8-200 8 Byron Davalos. 2421 [facility] 102, [place], [address], [place]. tel:[phone] Referring Provider: Balaji Winn, [address] [place] [address], [facility]. tel:[phone] Office/outpat ient Visit, [facility], [address] [place] [address] [address], [place], [place], [address], tel:[phone] [facility] No Information Mar-2 6-200 8 Pressley OD Robbie. [address] [place], [place] [address]ate Center , [address], [place], [facility], [place]. tel:[phone] Referring Provider: Balaji Winn, [address] [place] [address], [facility]. tel:[phone] [facility], [address] [place] [address] [address], [place], [place], [address], [place] tel:[phone] [facility] No Information Mar-2 5-200 8 Krishnasamy Anoop. [address] [place], [place] [address]ate Center [address], [place], [facility], [place]. tel:[phone] Referring Provider: Robbie Pressley OD A, [address] [place], [place] [address]ate Center [address], [place], [facility]. tel:[phone] Office/outpat ient Visit, [facility], [address] [place] [address] [address], [place], [place], [address], [place] tel:[phone] SEC [facility] No Information Mar-1 9-200 8 Pressley OD Robbie. [facility] , [address], [place], [facility], [place]. tel:[phone] Office/outpat ient Visit, [facility], [address] [place] [address] [address], [place], [place], [address], [place] tel:[phone] SEC [facility] No Information Mar-1 2-200 8 Pressley OD Robbie. [facility] Center , [address], [place], [address], [place]. tel:[phone] Referring Provider: Balaji Winn, [facility] [place], [address]. tel:[phone] Family History Family Member Type Diagnosis Age [...]
--- OUTSIDE RECORDS SUMMARY | 2025-07-12 10:01 | XMS_ITS | Continuity of Care Document ---
Author Organization [facility] Address [address] [place] [phone] Phone Care Team Providers Care Nail Technician Name Role Phone Hiram WALLS, FACC, José Miguel Unavailable Unavailab le Allergies, Adverse Reactions, Alerts Substance Reaction Status Criticality sulfabenzamide Active No Informatio n Medications Medication Instructions Dosage Effective Dates (start - stop) Status Comments Xarelto 20 mg tablet take 1 tablet by oral route every day - Active bupropion HCl XL 150 mg 24 hr tablet, extended release - Active lisinopril 20 mg-hydrochlorothiaz april 12.5 mg tablet take 1 tablet by oral route every day 1.00 tablet - Active omeprazole 20 mg capsule,delayed release - Active pregabalin 50 mg capsule BID - Active Daily-Jordi (with folic acid) 400 mcg tablet TAKE 1 TABLET BY MOUTH EVERY DAY - Active meloxicam 15 mg tablet - Active calcium 600 mg (as carbonate)-vitamin D3 10 mcg (400 unit) tablet TAKE 1 TABLET BY MOUTH TWICE A DAY - Active Procedures Procedure Date Complex e/m visit add on OFFICE/OUTPATIENT VISIT, NEW ELECTROCARDIOGRAM, COMPLETE Advance Directives Directive Yes / No Effective Date File Name No Information Encounters Encounter Description Practice Location Reason(s) For Visit Diagnoses Date Provider Providers Copied on Encounter [facility], [address], [place], [id number], [place] tel:[phone] [facility] No Information Hiram Huddlestonialisa. [address] , [place], [place], [id number] , [place]. tel: [phone] OFFICE/OUTPAT IENT VISIT, [facility], [address] [place] [address], [id number], tel:[phone] [facility] Establish care (chief complaint) Pt is being treated for DVT (chief complaint) occurring edema tyesha legs (chief complaint) DyspneaHTNEdemaHx of DVTPEObesityFamily hx of heart diseaseChest pain Hiram Valdez. [address], [place], [place], [id number] , [place]. tel: [phone] Referring Provider: Balaji Winn, [address] [place] [address] [address], [place], [address]. tel:[phone] [facility], [address] [place] [address], [id number], tel:[phone] [facility] No Information Hiram Huddlestonialisa. [address] , [place], [place], [id number] , [place]. tel: [phone] Family History Family Member Type Diagnosis Age At Onset Problem (finding) Family history of Hyper tension Problem (finding) Family history of COPD Problem (finding) Family history of Diabe judy mellitus Problem (finding) Family history of Strok e Problem (finding) Family history of Cardi ovascular disease Payers Payer name Insurance type Covered republican ID Authoriza tion(s) [facility] MEDICARE COMPLETE POS HMO 16 [id number] Social History Type Description Quantity Date Captured Comments Alcohol Use Details Unknown Caffeine Use Details Unknown Tobacco Use Status No Information Smoking Status No Information Sex Female Chief Complaint And Reason For Visit No Information Reason For Referral Reason For Referral No Information Plan Of Treatment Date Type Action Status Appointment Debbie Brumfield BOOKED Future Order: Radiology Order [facility] Cardiac PET-CT ([id number]), Ordered on: Ordered History Of Present Illness Encounter Date Complaint History Of Prese nt Illness Establish care Pt is being treated for DVT occurring edema tyesha legs Functional Status Date Functional Assessmen t No Information Instructions Date Instruction Additional Infor mation No Information Assessments Type Assessment Date No Information Patient Care Teams Name Effective Dates (start - stop) Status Members No Information
--- OUTSIDE RECORDS SUMMARY | 2025-07-12 10:01 | XMS_ITS | Continuity of Care Document ---
Author Organization [facility] Address [address] [place] [phone] Phone Care Team Providers Care Buying Agent Name Role Phone Hiram WALLS, FACC, José [...] Diagnoses Date Provider Providers Copied on Encounter [facility], [address] [place], [place], [id number], [place] tel:[phone] [facility] No Information Hiram Huddlestonialisa. [address] , [place], [place], [id number] , [place]. tel: [phone] OFFICE/OUTPAT IENT VISIT, [facility], [address] [place] [address], [id number], tel:[phone] [facility] Establish care (chief complaint) Pt is being treated for DVT (chief complaint) occurring edema tyesha legs (chief complaint) DyspneaHTNEdemaHx of DVTPEObesityFamily hx of heart diseaseChest pain Hiram Valdez. [address], [place], [place], [id number] , [place]. tel: [phone] Referring Provider: Balaji Winn, [address] [place] [address] [address], [place], [address]. tel:[phone] [facility], [address] [place] [address], [id number], tel:[phone] [facility] No Information Hiram Huddlestonialisa. [address] , [place], [place], [id number] , [place]. tel: [phone] Family History Family Member Type Diagnosis Age At Onset Problem (finding) Family history of Hyper tension Problem (finding) Family history of COPD Problem (finding) Family history of Diabe judy mellitus Problem (finding) Family history of Strok e Problem (finding) Family history of Cardi ovascular disease Payers Payer name Insurance type Covered democrat ID Authoriza tion(s) [facility] MEDICARE COMPLETE POS HMO 16 [id number] Social History Type Description Quantity Date Captured Comments Alcohol Use Details Unknown Caffeine Use Details Unknown Tobacco Use Status No Information Smoking Status No Information Sex Female Chief Complaint And Reason For Visit No Information Reason For Referral Reason For Referral No Information Plan Of Treatment Date Type Action Status Appointment Debbie Brumfield BOOKED Future Order: Radiology Order [facility] Cardiac PET-CT ([id number]), Ordered on: Ordered History Of Present Illness [...]
--- OUTSIDE RECORDS SUMMARY | 2025-07-12 10:01 | XMS_ITS | Continuity of Care Document ---
Author Organization [facility] Address [address] [place] [phone] Phone Care Team Providers Care Experience Design Director Name Role Phone Hiram WALLS, FACC, José [...] Diagnoses Date Provider Providers Copied on Encounter [facility], [address] [place], [place], [id number], [place] tel:[phone] [facility] No Information Hiram Huddlestonialisa. [address] , [place], [place], [id number] , [place]. tel: [phone] OFFICE/OUTPAT IENT VISIT, [facility], [address] [place] [address], [id number], tel:[phone] [facility] Establish care (chief complaint) Pt is being treated for DVT (chief complaint) occurring edema tyesha legs (chief complaint) DyspneaHTNEdemaHx of DVTPEObesityFamily hx of heart diseaseChest pain Hiram Valdez. [address], [place], [place], [id number] , [place]. tel: [phone] Referring Provider: Balaji Winn, [address] [place] [address] [address], [place], [address]. tel:[phone] [facility], [address] [place] [address], [id number], tel:[phone] [facility] No Information Hiram Huddlestonialisa. [address] , [place], [place], [id number] , [place]. tel: [phone] Family History Family Member Type Diagnosis Age At Onset Problem (finding) Family history of Hyper tension Problem (finding) Family history of COPD Problem (finding) Family history of Diabe judy mellitus Problem (finding) Family history of Strok e Problem (finding) Family history of Cardi ovascular disease Payers Payer name Insurance type Covered libertarian ID Authoriza tion(s) [facility] MEDICARE COMPLETE POS HMO 16 [id number] Social History Type Description Quantity Date Captured Comments Alcohol Use Details Unknown Caffeine Use Details Unknown Tobacco Use Status No Information Smoking Status No Information Sex Female Chief Complaint And Reason For Visit No Information Reason For Referral Reason For Referral No Information Plan Of Treatment Date Type Action Status Appointment Debbie Brumfield BOOKED Future Order: Radiology Order St [facility] Cardiac PET-CT ([id number]), Ordered on: Ordered History Of Present Illness [...]
--- OUTSIDE RECORDS SUMMARY | 2025-07-12 10:01 | XMS_ITS | Continuity of Care Document ---
Author Organization [facility] Address [address] [place] [phone] Phone Care Team Providers Care Plasterer Apprentice Name Role Phone Hiram WALLS, FACC, José [...] Diagnoses Date Provider Providers Copied on Encounter [facility], [address] [place], [place], [id number], [place] tel:[phone] [facility] No Information Hiram Huddelstonialisa. [address] , [place], [place], [id number] , [place]. tel: [phone] OFFICE/OUTPAT IENT VISIT, [facility], [address] [place] [address], [id number], tel:[phone] [facility] Establish care (chief complaint) Pt is being treated for DVT (chief complaint) occurring edema tyesha legs (chief complaint) DyspneaHTNEdemaHx of DVTPEObesityFamily hx of heart diseaseChest pain Hiram Valdez. [address], [place], [place], [id number] , [place]. tel: [phone] Referring Provider: Balaji Winn, [address] [place] [address] [address], [place], [address]. tel:[phone] [facility], [address] [place] [address], [id number], tel:[phone] [facility] No Information Hiram Huddlestonilaisa. [address] , [place], [place], [id number] , [place]. tel: [phone] Family History Family Member Type Diagnosis Age At Onset Problem (finding) Family history of Hyper tension Problem (finding) Family history of COPD Problem (finding) Family history of Diabe judy mellitus Problem (finding) Family history of Strok e Problem (finding) Family history of Cardi ovascular disease Payers Payer name Insurance type Covered democrat ID Authoriza tion(s) [facility] MEDICARE COMPLETE POS HMO 16 [id number] Social History Type Description Quantity Date Captured Comments Alcohol Use Details Unknown Caffeine Use Details Unknown Tobacco Use Status No Information Smoking Status No Information Sex Female Chief Complaint And Reason For Visit No Information Reason For Referral Reason For Referral No Information Plan Of Treatment Date Type Action Status Appointment Debbie Brumfield BOOKED Future Order: Radiology Order St [facility] Cardiac PET-CT ([id number]), Ordered on: Ordered History Of Present Illness [...]
--- OUTSIDE RECORDS SUMMARY | 2025-07-12 10:01 | XMS_ITS | Continuity of Care Document ---
Author Organization [facility] Address [address] [place] [phone] Phone Care Team Providers Care Overedger Name Role Phone Hiram WALLS, FACC, José [...] Diagnoses Date Provider Providers Copied on Encounter [facility], [address] [place], [place], [id number], [place] tel:[phone] [facility] No Information Hiram Huddlestonialisa. [address] , [place], [place], [id number] , [place]. tel: [phone] OFFICE/OUTPAT IENT VISIT, [facility], [address] [place] [address], [id number], tel:[phone] [facility] Establish care (chief complaint) Pt is being treated for DVT (chief complaint) occurring edema tyesha legs (chief complaint) DyspneaHTNEdemaHx of DVTPEObesityFamily hx of heart diseaseChest pain Hiram Valdez. [address], [place], [place], [id number] , [place]. tel: [phone] Referring Provider: Balaji Winn, [address] [place] [address] [address], [place], [address]. tel:[phone] [facility], [address] [place] [address], [id number], tel:[phone] [facility] No Information Hiram Huddlestonialisa. [address] , [place], [place], [id number] , [place]. tel: [phone] Family History Family Member Type Diagnosis Age At Onset Problem (finding) Family history of Hyper tension Problem (finding) Family history of COPD Problem (finding) Family history of Diabe judy mellitus Problem (finding) Family history of Strok e Problem (finding) Family history of Cardi ovascular disease Payers Payer name Insurance type Covered libertarian ID Authoriza tion(s) [facility] MEDICARE COMPLETE POS HMO 16 [id number] Social History Type Description Quantity Date Captured Comments Alcohol Use Details Unknown Caffeine Use Details Unknown Tobacco Use Status No Information Smoking Status No Information Sex Female Chief Complaint And Reason For Visit No Information Reason For Referral Reason For Referral No Information Plan Of Treatment Date Type Action Status Appointment Debbie Brumfield BOOKED Future Order: Radiology Order St [facility] Cardiac PET-CT ([id number]), Ordered on: Ordered History Of Present Illness [...]
--- OUTSIDE RECORDS SUMMARY | 2025-07-12 10:01 | XMS_ITS | Continuity of Care Document ---
Author Organization [facility] Address [address] [place] [phone] Phone Care Team Providers Care Retail Greeter Name Role Phone Hiram WALLS, FACC, José [...] Diagnoses Date Provider Providers Copied on Encounter [facility], [address] [place], [place], [id number], [place] tel:[phone] [facility] No Information Hiram Huddlestonialisa. [address] , [place], [place], [id number] , [place]. tel: [phone] OFFICE/OUTPAT IENT VISIT, [facility], [address] [place] [address], [id number], tel:[phone] [facility] Establish care (chief complaint) Pt is being treated for DVT (chief complaint) occurring edema tyesha legs (chief complaint) DyspneaHTNEdemaHx of DVTPEObesityFamily hx of heart diseaseChest pain Hiram Valdez. [address], [place], [place], [id number] , [place]. tel: [phone] Referring Provider: Balaji Winn, [address] [place] [address] [address], [place], [address]. tel:[phone] [facility], [address] [place] [address], [id number], tel:[phone] [facility] No Information Hiram Huddlestonialisa. [address] , [place], [place], [id number] , [place]. tel: [phone] Family History Family Member Type Diagnosis Age At Onset Problem (finding) Family history of Hyper tension Problem (finding) Family history of COPD Problem (finding) Family history of Diabe judy mellitus Problem (finding) Family history of Strok e Problem (finding) Family history of Cardi ovascular disease Payers Payer name Insurance type Covered constitution party ID Authoriza tion(s) [facility] MEDICARE COMPLETE POS HMO 16 [id number] Social History Type Description Quantity Date Captured Comments Alcohol Use Details Unknown Caffeine Use Details Unknown Tobacco Use Status No Information Smoking Status No Information Sex Female Chief Complaint And Reason For Visit No Information Reason For Referral Reason For Referral No Information Plan Of Treatment Date Type Action Status Appointment Debbie Brumfield BOOKED Future Order: Radiology Order St [facility] Cardiac PET-CT ([id number]), Ordered on: Ordered History Of Present Illness [...]
--- OUTSIDE RECORDS SUMMARY | 2025-07-12 10:01 | XMS_ITS | Continuity of Care Document ---
Author Organization [facility] Address [address] [place] [phone] Phone Care Team Providers Care Petroleum Refinery Worker Name Role Phone Hiram WALLS, FACC, José [...] Diagnoses Date Provider Providers Copied on Encounter [facility], [address] [place], [place], [id number], [place] tel:[phone] [facility] No Information Hiram Huddlestonialisa. [address] , [place], [place], [id number] , [place]. tel: [phone] OFFICE/OUTPAT IENT VISIT, [facility], [address] [place] [address], [id number], tel:[phone] [facility] Establish care (chief complaint) Pt is being treated for DVT (chief complaint) occurring edema tyesha legs (chief complaint) DyspneaHTNEdemaHx of DVTPEObesityFamily hx of heart diseaseChest pain Hiram Valdez. [address], [place], [place], [id number] , [place]. tel: [phone] Referring Provider: Balaji Winn, [address] [place] [address] [address], [place], [address]. tel:[phone] [facility], [address] [place] [address], [id number], tel:[phone] [facility] No Information Hiram Huddlestonialisa. [address] , [place], [place], [id number] , [place]. tel: [phone] Family History Family Member Type Diagnosis Age At Onset Problem (finding) Family history of Hyper tension Problem (finding) Family history of COPD Problem (finding) Family history of Diabe judy mellitus Problem (finding) Family history of Strok e Problem (finding) Family history of Cardi ovascular disease Payers Payer name Insurance type Covered green party ID Authoriza tion(s) [facility] MEDICARE COMPLETE POS HMO 16 [id number] Social History Type Description Quantity Date Captured Comments Alcohol Use Details Unknown Caffeine Use Details Unknown Tobacco Use Status No Information Smoking Status No Information Sex Female Chief Complaint And Reason For Visit No Information Reason For Referral Reason For Referral No Information Plan Of Treatment Date Type Action Status Appointment Debbie Brumfield BOOKED Future Order: Radiology Order St [facility] Cardiac PET-CT ([id number]), Ordered on: Ordered History Of Present Illness [...]
--- OUTSIDE RECORDS SUMMARY | 2025-07-12 10:01 | XMS_ITS | Continuity of Care Document ---
Author Organization [facility] Address [address] [place] [phone] Phone Care Team Providers Care Driver Name Role Phone Hiram WALLS, FACC, José [...] Diagnoses Date Provider Providers Copied on Encounter [facility], [address] [place], [place], [id number], [place] tel:[phone] [facility] No Information Hiram Huddlestonialisa. [address] , [place], [place], [id number] , [place]. tel: [phone] OFFICE/OUTPAT IENT VISIT, [facility], [address] [place] [address], [id number], tel:[phone] [facility] Establish care (chief complaint) Pt is being treated for DVT (chief complaint) occurring edema tyesha legs (chief complaint) DyspneaHTNEdemaHx of DVTPEObesityFamily hx of heart diseaseChest pain Hiram Valdez. [address], [place], [place], [address] , [place]. tel: [phone] Referring Provider: Balaji Winn, [address] [place] [address] [address], [place], [address]. tel:[phone] [facility], [address] [place] [address], [id number], tel:[phone] [facility] No Information Hiram Huddlestonialisa. [address] , [place], [place], [id number] , [place]. tel: [phone] Family History Family Member Type Diagnosis Age At Onset Problem (finding) Family history of Hyper tension Problem (finding) Family history of COPD Problem (finding) Family history of Diabe judy mellitus Problem (finding) Family history of Strok e Problem (finding) Family history of Cardi ovascular disease Payers Payer name Insurance type Covered constitution party ID Authoriza tion(s) [facility] MEDICARE COMPLETE POS HMO 16 [id number] Social History Type Description Quantity Date Captured Comments Alcohol Use Details Unknown Caffeine Use Details Unknown Tobacco Use Status No Information Smoking Status No Information Sex Female Chief Complaint And Reason For Visit No Information Reason For Referral Reason For Referral No Information Plan Of Treatment Date Type Action Status Appointment Debbie Brumfield BOOKED Future Order: Radiology Order St [facility] Cardiac PET-CT ([id number]), Ordered on: Ordered History Of Present Illness [...]
--- OUTSIDE RECORDS SUMMARY | 2025-07-12 10:01 | XMS_ITS | Continuity of Care Document ---
Author Organization [facility] Address [address] [place] [phone] Phone Care Team Providers Care Vice President Diversity Name Role Phone Hiram WALLS, FACC, José [...] Diagnoses Date Provider Providers Copied on Encounter [facility], [address] [place], [place], [id number], [place] tel:[phone] [facility] No Information Hiram Huddlestonialisa. [address] , [place], [place], [id number] , [place]. tel: [phone] OFFICE/OUTPAT IENT VISIT, [facility], [address] [place] [address], [id number], tel:[phone] [facility] Establish care (chief complaint) Pt is being treated for DVT (chief complaint) occurring edema tyesha legs (chief complaint) DyspneaHTNEdemaHx of DVTPEObesityFamily hx of heart diseaseChest pain Hiram Valdez. [address], [place], [place], [id number] , [place]. tel: [phone] Referring Provider: Balaji Winn, [address] [place] [address] [address], [place], [address]. tel:[phone] [facility], [address] [place] [address], [id number], tel:[phone] [facility] No Information Hiram Huddlestonialisa. [address] , [place], [place], [id number] , [place]. tel: [phone] Family History Family Member Type Diagnosis Age At Onset Problem (finding) Family history of Hyper tension Problem (finding) Family history of COPD Problem (finding) Family history of Diabe judy mellitus Problem (finding) Family history of Strok e Problem (finding) Family history of Cardi ovascular disease Payers Payer name Insurance type Covered alliance party ID Authoriza tion(s) [facility] MEDICARE COMPLETE POS HMO 16 [id number] Social History Type Description Quantity Date Captured Comments Alcohol Use Details Unknown Caffeine Use Details Unknown Tobacco Use Status No Information Smoking Status No Information Sex Female Chief Complaint And Reason For Visit No Information Reason For Referral Reason For Referral No Information Plan Of Treatment Date Type Action Status Appointment Debbie Brumfield BOOKED Future Order: Radiology Order St ress Cardiac PET-CT ([id number]), Ordered on: Ordered History Of Present Illness [...]
--- OUTSIDE RECORDS SUMMARY | 2025-07-12 10:01 | XMS_ITS | Continuity of Care Document ---
Author Organization [facility] Address [address] [place] [phone] Phone Care Team Providers Care Operators Teacher Name Role Phone Hiram WALLS, FACC, José [...] Diagnoses Date Provider Providers Copied on Encounter [facility], [address] [place], [place], [id number], [place] tel:[phone] [facility] No Information Hiram Huddlestonialisa. [address] , [place], [place], [id number] , [place]. tel: [phone] OFFICE/OUTPAT IENT VISIT, [facility], [address] [place] [address], [id number], tel:[phone] [facility] Establish care (chief complaint) Pt is being treated for DVT (chief complaint) occurring edema tyesha legs (chief complaint) DyspneaHTNEdemaHx of DVTPEObesityFamily hx of heart diseaseChest pain Hiram Valdez. [address], [place], [place], [id number] , [place]. tel: [phone] Referring Provider: Balaji Winn, [address] [place] [address] [address], [place], [address]. tel:[phone] [facility], [address] [place] [address], [id number], tel:[phone] [facility] No Information Hiram Huddlestonialisa. [address] , [place], [place], [id number] , [place]. tel: [phone] Family History Family Member Type Diagnosis Age At Onset Problem (finding) Family history of Hyper tension Problem (finding) Family history of COPD Problem (finding) Family history of Diabe judy mellitus Problem (finding) Family history of Strok e Problem (finding) Family history of Cardi ovascular disease Payers Payer name Insurance type Covered republican ID Authoriza tion(s) [facility] MEDICARE COMPLETE POS HMO 16 [id number] Social History Type Description Quantity Date Captured Comments Alcohol Use Details Unknown Caffeine Use Details Unknown Tobacco Use Status No Information Smoking Status No Information Sex Female Chief Complaint And Reason For Visit No Information Reason For Referral Reason For Referral No Information Plan Of Treatment Date Type Action Status Appointment Debbie Brumfield BOOKED Future Order: Radiology Order St res[facility] Cardiac PET-CT ([id number]), Ordered on: Ordered History Of Present Illness [...]
--- OUTSIDE RECORDS SUMMARY | 2025-07-12 10:01 | XMS_ITS | Continuity of Care Document ---
Author Organization [facility] Address [address] [place] [address] Phone Care Team Providers Care Adjunct Psychology Instructor Name Role Phone Hiram WALLS, FACC, José [...] Diagnoses Date Provider Providers Copied on Encounter [facility], [address] [place], [place], [id number], [place] tel:[phone] [facility] No Information Hiram Huddlestonialisa. [address] , [place], [place], [id number] , [place]. tel: [phone] OFFICE/OUTPAT IENT VISIT, [facility], [address] [place] [address], [id number], tel:[phone] [facility] Establish care (chief complaint) Pt is being treated for DVT (chief complaint) occurring edema tyesha legs (chief complaint) DyspneaHTNEdemaHx of DVTPEObesityFamily hx of heart diseaseChest pain Hiram Valdez. [address], [place], [place], [id number] , [place]. tel: [phone] Referring Provider: Balaji Winn, [address] [place] [address] [address], [place], [address]. tel:[phone] [facility], [address] [place] [address], [id number], tel:[phone] [facility] No Information Hiram Huddlestonialisa. [address] , [place], [place], [id number] , [place]. tel: [phone] Family History Family Member Type Diagnosis Age At Onset Problem (finding) Family history of Hyper tension Problem (finding) Family history of COPD Problem (finding) Family history of Diabe judy mellitus Problem (finding) Family history of Strok e Problem (finding) Family history of Cardi ovascular disease Payers Payer name Insurance type Covered alliance party ID Authoriza tion(s) [facility] MEDICARE COMPLETE POS HMO 16 [id number] Social History Type Description Quantity Date Captured Comments Alcohol Use Details Unknown Caffeine Use Details Unknown Tobacco Use Status No Information Smoking Status No Information Sex Female Chief Complaint And Reason For Visit No Information Reason For Referral Reason For Referral No Information Plan Of Treatment Date Type Action Status Appointment Debbie Brumfield BOOKED Future Order: Radiology Order St ress Cardiac PET-CT ([id number]), Ordered on: Ordered History Of Present Illness [...]
--- OUTSIDE RECORDS SUMMARY | 2025-07-12 10:01 | XMS_ITS | Continuity of Care Document ---
Author Organization [facility] Address [address] [place] [phone] Phone Care Team Providers Care Telegraphic Typewriter Installer Name Role Phone Hiram WALLS, FACC, José [...] Diagnoses Date Provider Providers Copied on Encounter [facility], [address] [place], [place], [id number], [place] tel:[phone] [facility] No Information Hiram Huddlestonialisa. [address] , [place], [place], [id number] , [place]. tel: [phone] OFFICE/OUTPAT IENT VISIT, [facility], [address] [place] [address], [id number], tel:[phone] [facility] Establish care (chief complaint) Pt is being treated for DVT (chief complaint) occurring edema tyesha legs (chief complaint) DyspneaHTNEdemaHx of DVTPEObesityFamily hx of heart diseaseChest pain Hiram Valdez. [address], [place], [place], [id number] , [place]. tel: [phone] Referring Provider: Balaji Winn, [address] [place] [address] [address], [place], [address]. tel:[phone] [facility], [address] [place] [address], [id number], tel:[phone] [facility] No Information Hiram Huddlestonialisa. [address] , [place], [place], [id number] , [place]. tel: [phone] Family History Family Member Type Diagnosis Age At Onset Problem (finding) Family history of Hyper tension Problem (finding) Family history of COPD Problem (finding) Family history of Diabe judy mellitus Problem (finding) Family history of Strok e Problem (finding) Family history of Cardi ovascular disease Payers Payer name Insurance type Covered democrat ID Authoriza tion(s) [facility] MEDICARE COMPLETE POS HMO 16 [id number] Social History Type Description Quantity Date Captured Comments Alcohol Use Details Unknown Caffeine Use Details Unknown Tobacco Use Status No Information Smoking Status No Information Sex Female Chief Complaint And Reason For Visit No Information Reason For Referral Reason For Referral No Information Plan Of Treatment Date Type Action Status Appointment Debbie Brumfield BOOKED Future Order: Radiology Order St ress Cardiac PET-CT ([id number]), Ordered on: Ordered History Of Present Illness [...]
--- OUTSIDE RECORDS SUMMARY | 2025-07-12 10:01 | XMS_ITS | Continuity of Care Document ---
Author Organization [facility] Address [address] [place] [phone] Phone Care Team Providers Care Sled Maker Name Role Phone Hiram WALLS, FACC, José [...] Diagnoses Date Provider Providers Copied on Encounter [facility], [address], [place], [id number], [place] tel:[phone] [facility] No Information Hiram Huddlestonialisa. [address] , [place], [place], [id number] , [place]. tel: [phone] OFFICE/OUTPAT IENT VISIT, [facility], [address] [place] [address], [id number], tel:[phone] [facility] Establish care (chief complaint) Pt is being treated for DVT (chief complaint) occurring edema tyesha legs (chief complaint) DyspneaHTNEdemaHx of DVTPEObesityFamily hx of heart diseaseChest pain Hiram Valdez. [address], [place], [place], [id number] , [place]. tel: [phone] Referring Provider: Balaji Winn, [address] [place] [address] [address], [place], [address]. tel:[phone] [facility], [address] [place] [address], [id number], tel:[phone] [facility] No Information Hiram Huddlestonialisa. [address] , [place], [place], [id number] , [place]. tel: [phone] Family History Family Member Type Diagnosis Age At Onset Problem (finding) Family history of Hyper tension Problem (finding) Family history of COPD Problem (finding) Family history of Diabe judy mellitus Problem (finding) Family history of Strok e Problem (finding) Family history of Cardi ovascular disease Payers Payer name Insurance type Covered libertarian ID Authoriza tion(s) [facility] MEDICARE COMPLETE POS HMO [id number] Social History Type Description Quantity Date Captured Comments Alcohol Use Details Unknown Caffeine Use Details Unknown Tobacco Use Status No Information Smoking Status No Information Sex Female Chief Complaint And Reason For Visit No Information Reason For Referral Reason For Referral No Information Plan Of Treatment Date Type Action Status Appointment Debbie Brumfield BOOKED Future Order: Radiology Order [facility] Cardiac PET-CT ([id number]), Ordered on: Ordered History Of Present Illness [...]
--- OUTSIDE RECORDS SUMMARY | 2025-07-12 23:23 | XMS_ITS | Clinical Summary ---
Author Organization [facility] Facility Address [address] [place] [address] Care Team Providers Care Firmware Software Verification Engineer Name Role Phone Balaji Winn MD Primary Care Provider Encounters Date Type Department Care Team Description 06/06/2025 Documentation Only [facility], [address] [phone] Walter Acosta, DO 06/05/2025 Documentation Only [facility], [address] [phone] Walter Acosta, 06/01/2025 Documentation Only [facility], [address] [address] Walter Acosta, DO 05/09/2025 Documentation Only [facility], [address] [phone] Walter Acosta, DO 05/09/2025 Documentation Only [facility], [address] [address] Walter Acosta, 05/08/2025 Documentation Only [facility], [address] [phone] Walter Acosta, DO from Last 3 Months Social History [...] 36.7 C (98 F) 09/27/2024 4:25 PM 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, [facility] [address] [facility] [address] [place] [address] Walter Acosta DO [address] [facility] [address] [place] [address] Health Maintenance Due Date Last Done Comments Breast Cancer Screening 1955 Colorectal Cancer Screening: Annual FOBT 2005 Colorectal Cancer Screening: Colonoscopy 2005 Colorectal Cancer Screening: Sigmoidoscopy 2005 Diabetes: Hemoglobin A1C 01/20/2025 Diabetes: Ophthalmology Exam 01/20/2025 Diabetes: Pedal Pulse Checked 01/20/2025 Diabetes: Sensory Foot Exam 01/20/2025 Diabetes: Visual Foot Exam 01/20/2025 Influenza Vaccine (#1) 2025 4, 06/04/2020, 07/07/2019, Additional history exists Pneumococcal Vaccine: 50+ Years Completed 08/14/2023, 07/16/2022 Hepatitis B Vaccine Aged Out No longe r eligible based on patient's age to complete this topic Insurance [facility] Medicare Advance Directives Documents on File Type Date Recorded Patient Slip Cover Cutter Expl anation Advance Care Planning 09/27/2024 11:40 AM Care Teams Firmware Software Verification Engineer Relationship Specialty Start Date End Date Balaji Winn MD [address] [phone] PCP - General Internal Medicine 05/27/24
== END 2025-07-12 15:15 | disposition home or self-care (01) ==
LOC: ANHGOSHLAB 15:14
PROVIDERS: PCP Internal Medicine; Visit Provider Otolaryngology
DX: J32.9 Chronic sinusitis, unspecified (principal)
CPT/HCPCS: 87070; 87147; 87186; 87205